=== PATIENT | female | born 1955 | race Caucasian/White ===

== ENCOUNTER 2016-08-09 15:29 | Emergency (ER) | payer MEDICAID ==
[~2016-08-09] VITALS: Ht 152.4 cm; Wt 90.7 kg
[~2016-08-09 15:29] MED LIST: BACL10TA PO; BISA-13 PO; ENAL20TA70 PO; GABA-339 PO; LEVO150T10 PO; LEVO25TA6 PO; MORP15TA68 PO; NORT25CA PO; OMEP20CA5 PO
[2016-08-09 15:40] VITALS: BP 142/72
[2016-08-09] MEDS ORDERED: KETOROLAC TROMETH 60MG/2ML VIAL IM ONE (17:30)
== END 2016-08-09 17:50 | disposition home or self-care (01) ==
LOC: ER 15:33
DX: S53.401A Unspecified sprain of right elbow, initial encounter (principal); E78.5 Hyperlipidemia, unspecified; I10 Essential (primary) hypertension; E11.9 Type 2 diabetes mellitus without complications; E07.9 Disorder of thyroid, unspecified; J45.909 Unspecified asthma, uncomplicated; J44.9 Chronic obstructive pulmonary disease, unspecified; M19.90 Unspecified osteoarthritis, unspecified site; F17.210 Nicotine dependence, cigarettes, uncomplicated; Z79.899 Other long term (current) drug therapy; W19.XXXA Unspecified fall, initial encounter; Y93.89 Activity, other specified; Y99.8 Other external cause status; Y92.89 Other specified places as the place of occurrence of the external cause
CPT/HCPCS: 73080; 96372; 99284; J1885

== ENCOUNTER 2016-10-02 12:06 | Emergency (ER) | payer MEDICAID ==
[~2016-10-02] VITALS: Ht 152.4 cm; Wt 90.7 kg
[2016-10-02] MEDS ORDERED: cloNIDine HCL 0.1 MG TAB ONE (12:16)
[2016-10-02] MEDS ORDERED: cloNIDine HCL 0.1 MG TAB PO ONE (12:30)
[2016-10-02 13:01] LABS: Basophils # (auto) 0.1 uL; Basophils % (auto) 0.5 % (0.0-2.0); Eosinophils # (auto) 0.2 uL; Eosinophils % (auto) 1.2 % (0.0-7.0); Hematocrit 45.3 % (36.0-46.0); Lymphocytes # (auto) 3.3 uL; Lymphocytes % (auto) 23.5 % (10.0-50.0); Mean Corpuscular Hemoglobin 28.3 pg (28.0-32.0); Mean Corpuscular Hgb Conc. 33.2 g/dL (32.0-36.0); Mean Corpuscular Volume 85.4 fL (80.0-100.0); Mean Platelet Volume 8.6 fL (7.4-10.4); Monocytes # (auto) 0.8 uL; Monocytes % (auto) 5.4 % (0.0-12.0); Neutrophils # (auto) 9.7 uL; Neutrophils % (auto) 69.4 % (37.0-80.0); Platelet Count (auto) 332 10^3/uL (140-450); Red Cell Distribution Width 17.3 % (11.6-16.0)
[2016-10-02] MEDS ORDERED: ONDANSETRON HCL 4 MG/2 ML VIAL IV ONE (13:15)
[2016-10-02 13:28] LABS: Albumin 3.5 g/dL (3.4-5.0); Alkaline Phosphatase 205 U/L (45-117); Anion Gap 8 (5-15); Aspartate Aminotransferase 27 U/L (15-37); BUN/Creatinine Ratio 16.4; Bilirubin, Total 0.3 mg/dL (0.2-1.0); Blood Urea Nitrogen 12 mg/dL (7-18); Calcium 8.8 mg/dL (8.5-10.1); Carbon Dioxide 26 mmol/L (21-32); Chloride 103 mmol/L (98-107); GFR African American 105 mL/min; GFR Non-African American 86 mL/min; Glucose 343 mg/dL (74-106); Potassium 3.6 mmol/L (3.5-5.1); Sodium 137 mmol/L (136-145)
[2016-10-02] MEDS ORDERED: MORPHINE SULF INJ 2 MG/ML SYRINGE 1ML IV ONE (13:30)
[2016-10-02 17:13] LABS: Urine Bilirubin Negative (Negative); Urine Blood Negative /uL (Negative); Urine Color Yellow (Yellow); Urine Ketone Negative (Negative); Urine Nitrite Negative (Negative); Urine RBC 1 /hpf (0 - 4); Urine Squamous Epithelial Cell FEW /hpf (<5); Urine Urobilinogen Normal (Negative); Urine pH 5.5 (5.0-8.0)
[2016-10-02 17:21] VITALS: BP 136/69
[2016-10-02 17:33] LABS: Urine Glucose 4+ mg/dL (Normal)
== END 2016-10-02 18:35 | disposition home or self-care (01) ==
LOC: ER 12:06
DX: I10 Essential (primary) hypertension (principal); E11.65 Type 2 diabetes mellitus with hyperglycemia; E11.40 Type 2 diabetes mellitus with diabetic neuropathy, unspecified; J44.9 Chronic obstructive pulmonary disease, unspecified; J45.909 Unspecified asthma, uncomplicated; M19.90 Unspecified osteoarthritis, unspecified site; F17.210 Nicotine dependence, cigarettes, uncomplicated; E78.5 Hyperlipidemia, unspecified; E07.9 Disorder of thyroid, unspecified; Z79.899 Other long term (current) drug therapy
CPT/HCPCS: 36415; 80053; 81001; 82962; 83735; 84484; 85025; 96374; 96375; 99284; J2270; J2405

== ENCOUNTER 2016-12-06 20:46 | Emergency (ER) | payer MEDICAID ==
[~2016-12-06] VITALS: Ht 152.4 cm; Wt 108.9 kg
[~2016-12-06 20:46] MED LIST changes: +MORP15TA PO; -MORP15TA68 PO; -OMEP20CA5 PO; +OMEP20CA74 PO
[2016-12-06] MEDS ORDERED: cloNIDine HCL 0.1 MG TAB PO ONE (21:30)
[2016-12-06 22:11] LABS: Basophils # (auto) 0.1 uL; Basophils % (auto) 0.7 % (0.0-2.0); CONDITION Y; Eosinophils # (auto) 0.3 uL; Eosinophils % (auto) 2.4 % (0.0-7.0); Hematocrit 49.8 % (36.0-46.0); Hemoglobin 16.2 g/dL (12.2-16.2); Lymphocytes # (auto) 3.1 uL; Lymphocytes % (auto) 23.9 % (10.0-50.0); Mean Corpuscular Hemoglobin 28.9 pg (28.0-32.0); Mean Corpuscular Hgb Conc. 32.6 g/dL (32.0-36.0); Mean Corpuscular Volume 88.8 fL (80.0-100.0); Mean Platelet Volume 9.1 fL (7.4-10.4); Monocytes # (auto) 0.7 uL; Monocytes % (auto) 5.3 % (0.0-12.0); Neutrophils # (auto) 8.8 uL; Neutrophils % (auto) 67.7 % (37.0-80.0); Platelet Count (auto) 357 10^3/uL (140-450); Red Cell Distribution Width 15.7 % (11.6-16.0)
[2016-12-06 22:13] LABS: Urine Bilirubin Negative (Negative); Urine Blood TRACE /uL (Negative); Urine Color Yellow (Yellow); Urine Glucose Normal (Normal); Urine Ketone Negative (Negative); Urine Nitrite Negative (Negative); Urine RBC 1 /hpf (0 - 4); Urine Squamous Epithelial Cell FEW /hpf (<5); Urine Urobilinogen Normal (Negative)
[2016-12-06 22:27] LABS: Albumin 3.8 g/dL (3.4-5.0); Anion Gap 10 (5-15); Aspartate Aminotransferase 23 U/L (15-37); BUN/Creatinine Ratio 12.3; Blood Urea Nitrogen 9 mg/dL (7-18); Calcium 8.7 mg/dL (8.5-10.1); Carbon Dioxide 25 mmol/L (21-32); Chloride 108 mmol/L (98-107); GFR African American 105 mL/min; GFR Non-African American 86 mL/min; Glucose 170 mg/dL (74-106); Magnesium 1.9 mg/dL (1.6-2.6); Potassium 3.8 mmol/L (3.5-5.1); Sodium 143 mmol/L (136-145)
[2016-12-06 22:32] LABS: Alkaline Phosphatase 181 U/L (45-117); Bilirubin, Total 0.4 mg/dL (0.2-1.0); Total Protein 8.7 g/dL (6.4-8.2)
[2016-12-06 23:24] LABS: INR 0.97 (0.9-1.15); Partial Thromboplastin Time 26.9 sec (22.64-33.71); Prothrombin Time 10.6 sec (9.37-12.3)
[2016-12-07 02:00] VITALS: BP 129/84
[2016-12-07] MEDS ORDERED: HYDROcodone-ACET 10/325MG TAB PO ONE (02:45)
[2016-12-07] MEDS ORDERED: LORazepam 2MG/ML-1ML VIAL IV ONE (03:00)
== END 2016-12-07 02:59 | disposition home or self-care (01) ==
LOC: ER 20:57
DX: R51 Headache (principal); F41.9 Anxiety disorder, unspecified; I10 Essential (primary) hypertension; E07.89 Other specified disorders of thyroid; M19.90 Unspecified osteoarthritis, unspecified site; F17.210 Nicotine dependence, cigarettes, uncomplicated; Z79.899 Other long term (current) drug therapy; Z90.49 Acquired absence of other specified parts of digestive tract; Z90.710 Acquired absence of both cervix and uterus
CPT/HCPCS: 36415; 70450; 71010; 80053; 80307; 81001; 82962; 83735; 84484; 85025; 85610; 85730; 93005; 96374; 99285; J2060

== ENCOUNTER 2017-02-12 15:22 | Emergency (ER) | payer MEDICAID ==
[~2017-02-12] VITALS: Ht 152.4 cm; Wt 90.7 kg
[2017-02-12 15:42] VITALS: BP 197/99
[2017-02-12] MEDS ORDERED: cloNIDine HCL 0.1 MG TAB PO ONE (16:15)
== END 2017-02-12 17:29 | disposition home or self-care (01) ==
LOC: ER 15:38
DX: S63.92XA Sprain of unspecified part of left wrist and hand, initial encounter (principal); I10 Essential (primary) hypertension; J45.909 Unspecified asthma, uncomplicated; E11.9 Type 2 diabetes mellitus without complications; E78.5 Hyperlipidemia, unspecified; M19.90 Unspecified osteoarthritis, unspecified site; Z90.49 Acquired absence of other specified parts of digestive tract; F17.210 Nicotine dependence, cigarettes, uncomplicated; W01.0XXA Fall on same level from slipping, tripping and stumbling without subsequent striking against object, initial encounter; Y93.89 Activity, other specified; Y99.8 Other external cause status; Y92.89 Other specified places as the place of occurrence of the external cause
CPT/HCPCS: 73130

== ENCOUNTER 2017-05-31 14:48 | Emergency (ER) | payer MEDICAID ==
[~2017-05-31] VITALS: Ht 152.4 cm; Wt 108.9 kg
[~2017-05-31 14:48] MED LIST changes: +MORP-109 PO; -MORP15TA PO
[2017-05-31 15:15] VITALS: BP 139/77
[2017-05-31] MEDS ORDERED: KETOROLAC TROMETH 60MG/2ML VIAL IM ONE (17:00)
== END 2017-05-31 17:29 | disposition left against medical advice (07) ==
LOC: ER 14:48
DX: G89.29 Other chronic pain (principal); M54.9 Dorsalgia, unspecified; J44.9 Chronic obstructive pulmonary disease, unspecified; E11.9 Type 2 diabetes mellitus without complications; E78.5 Hyperlipidemia, unspecified; I10 Essential (primary) hypertension; F17.210 Nicotine dependence, cigarettes, uncomplicated; Z82.3 Family history of stroke; Z83.3 Family history of diabetes mellitus; Z82.49 Family history of ischemic heart disease and other diseases of the circulatory system
CPT/HCPCS: 93005; 96372; 99283; J1885

== ENCOUNTER 2017-08-24 08:25 | Emergency (ER) | payer MEDICAID ==
[~2017-08-24] VITALS: Ht 152.4 cm; Wt 108.9 kg
[2017-08-24] MEDS ORDERED: IPRATROPIUM BROM 0.5 MG/2.5ML INH SOL NEB ONE (09:00)
[2017-08-24] MEDS ORDERED: methylPREDNISolone SOD SUCC 125 MG/2 ML VL IV ONE (09:00)
[2017-08-24] MEDS ORDERED: ALBUTEROL SULF 2.5 MG/0.5ML(0.5%) NEB SOLN NEB ONE (09:00)
[2017-08-24 09:15] LABS: Urine Bacteria NONE SEEN /hpf (None Seen); Urine Blood 1+ /uL (Negative); Urine Mucus FEW (None Seen); Urine WBC <1 /hpf (0 - 5)
[2017-08-24] MEDS ORDERED: HYDROcodone-ACET 5/325MG TAB PO ONE (09:45)
[2017-08-24 10:48] LABS: Basophils # (auto) 0.1 uL; Basophils % (auto) 0.8 % (0.0-2.0); Eosinophils # (auto) 0.1 uL; Hematocrit 45.6 % (36.0-46.0); Hemoglobin 15.3 g/dL (12.2-16.2); Lymphocytes # (auto) 1.6 uL; Lymphocytes % (auto) 23.2 % (10.0-50.0); Mean Corpuscular Hemoglobin 31.2 pg (28.0-32.0); Mean Corpuscular Hgb Conc. 33.6 g/dL (32.0-36.0); Monocytes # (auto) 0.5 uL; Monocytes % (auto) 6.8 % (0.0-12.0); Neutrophils # (auto) 4.7 uL; Neutrophils % (auto) 67.2 % (37.0-80.0); Nucleated Red Blood Cells % 0.1 %; Platelet Count (auto) 260 10^3/uL (140-450); Red Cell Distribution Width 14.2 % (11.8-14.3)
[2017-08-24 11:19] VITALS: BP 135/82
[2017-08-24 11:39] LABS: Alanine Aminotransferase 34 U/L (13-56); Albumin 3.4 g/dL (3.4-5.0); Alkaline Phosphatase 132 U/L (45-117); Anion Gap 10 (5-15); Aspartate Aminotransferase 26 U/L (15-37); BUN/Creatinine Ratio 12.7; Bilirubin, Total 0.4 mg/dL (0.2-1.0); Blood Urea Nitrogen 9 mg/dL (7-18); Calcium 8.5 mg/dL (8.5-10.1); Carbon Dioxide 24 mmol/L (21-32); Chloride 103 mmol/L (98-107); GFR African American 108 mL/min; GFR Non-African American 89 mL/min; Glucose 225 mg/dL (74-106); Magnesium 2.1 mg/dL (1.6-2.6); Potassium 3.9 mmol/L (3.5-5.1); Sodium 137 mmol/L (136-145); Total Protein 7.6 g/dL (6.4-8.2)
== END 2017-08-24 11:20 | disposition home or self-care (01) ==
LOC: ER 08:25
DX: J44.1 Chronic obstructive pulmonary disease with (acute) exacerbation (principal); E11.9 Type 2 diabetes mellitus without complications; I10 Essential (primary) hypertension; E78.00 Pure hypercholesterolemia, unspecified; F17.210 Nicotine dependence, cigarettes, uncomplicated; Z90.710 Acquired absence of both cervix and uterus
CPT/HCPCS: 36415; 71046; 80053; 81001; 83735; 84484; 85025; 93005; 94640; 96374; 99285; J2930; 99291

== ENCOUNTER 2018-01-20 13:43 | Emergency (ER) | payer MEDICAID ==
[~2018-01-20] VITALS: Ht 152.4 cm; Wt 104.3 kg
[2018-01-20 13:53] VITALS: BP 139/73
== END 2018-01-20 18:10 | disposition left against medical advice (07) ==
LOC: ER 13:43
DX: R52 Pain, unspecified (principal); Z76.0 Encounter for issue of repeat prescription; Z53.21 Procedure and treatment not carried out due to patient leaving prior to being seen by health care provider

== ENCOUNTER 2018-01-21 06:01 | Emergency (ER) | payer MEDICAID ==
[~2018-01-21] VITALS: Ht 152.4 cm; Wt 90.7 kg
[2018-01-21 06:27] VITALS: BP 162/100
[2018-01-21] MEDS ORDERED: MORPHINE SULFATE 10 MG/ML INJ 1ML SDV IM ONE (07:45)
[2018-01-21] MEDS ORDERED: PROMETHAZINE HCL 25 MG/ML 1ML IM ONE (07:45)
[2018-01-21] MEDS ORDERED: diphenhdrAMINE HCL 50 MG/1 ML VL IM ONE (07:45)
[2018-01-21] MEDS ORDERED: MORPHINE SULFATE 4 MG/ML SYR/VIAL IM ONE (08:00)
[2018-01-21] MEDS ORDERED: ONDANSETRON HCL 4 MG/2 ML VIAL IM ONE (08:00)
== END 2018-01-21 08:24 | disposition home or self-care (01) ==
LOC: ER 06:04
DX: M54.5 Low back pain (principal); G89.29 Other chronic pain; M19.90 Unspecified osteoarthritis, unspecified site; J44.9 Chronic obstructive pulmonary disease, unspecified; E11.9 Type 2 diabetes mellitus without complications; E78.5 Hyperlipidemia, unspecified; I10 Essential (primary) hypertension; E07.9 Disorder of thyroid, unspecified; F17.210 Nicotine dependence, cigarettes, uncomplicated; Z90.49 Acquired absence of other specified parts of digestive tract; Z79.899 Other long term (current) drug therapy; Z90.710 Acquired absence of both cervix and uterus
CPT/HCPCS: 96372; 99284; J1200; J2270; J2405

== ENCOUNTER 2018-01-30 20:23 | Emergency (ER) | payer MEDICAID ==
[~2018-01-30] VITALS: Ht 152.4 cm; Wt 108.9 kg
[2018-01-30 21:22] LABS: Basophils # (auto) 0.2 uL; Basophils % (auto) 1.3 % (0.0-2.0); Eosinophils # (auto) 0.2 uL; Eosinophils % (auto) 1.3 % (0.0-7.0); Hematocrit 50.5 % (36.0-46.0); Hemoglobin 16.8 g/dL (12.2-16.2); Lymphocytes # (auto) 4.2 uL; Lymphocytes % (auto) 27.7 % (10.0-50.0); Mean Corpuscular Hemoglobin 31.5 pg (28.0-32.0); Mean Corpuscular Hgb Conc. 33.4 g/dL (32.0-36.0); Mean Corpuscular Volume 94.5 fL (80.0-100.0); Monocytes # (auto) 1.1 uL; Monocytes % (auto) 7.4 % (0.0-12.0); Neutrophils # (auto) 9.4 uL; Neutrophils % (auto) 62.3 % (37.0-80.0); Nucleated Red Blood Cells % 0.1 %; Platelet Count (auto) 332 10^3/uL (140-450); Red Blood Cells 5.34 10^6/uL (4.0-5.20); Red Cell Distribution Width 14.9 % (11.8-14.3)
[2018-01-30 22:03] LABS: Urine Bacteria NONE SEEN /hpf (None Seen); Urine Blood TRACE /uL (Negative); Urine Hyaline Cast MANY /lpf (0 - 2); Urine Mucus FEW (None Seen); Urine WBC 11 /hpf (0 - 5)
[2018-01-30 22:47] LABS: Amphetamine Screen, Urine POSITIVE (NEGATIVE); Barbiturate Scree,Urine NEGATIVE (NEGATIVE); Benzodiazephine Screen, Urine NEGATIVE (NEGATIVE); Cannabinoid Screen, Urine NEGATIVE (NEGATIVE); Cocaine Screen, Urine NEGATIVE (NEGATIVE); Opiate Scree,Urine POSITIVE (NEGATIVE); Phencyclidine Screen, Urine NEGATIVE (NEGATIVE)
[2018-01-30 22:48] LABS: Albumin 4.1 g/dL (3.4-5.0); Alkaline Phosphatase 134 U/L (45-117); Anion Gap 9 (5-15); Aspartate Aminotransferase 37 U/L (15-37); BUN/Creatinine Ratio 15.3; Bilirubin, Total 0.6 mg/dL (0.2-1.0); Blood Urea Nitrogen 15 mg/dL (7-18); Calcium 9.3 mg/dL (8.5-10.1); Carbon Dioxide 24 mmol/L (21-32); Chloride 109 mmol/L (98-107); GFR African American 74 mL/min; GFR Non-African American 61 mL/min; Glucose 151 mg/dL (74-106); Magnesium 2.3 mg/dL (1.6-2.6); Sodium 142 mmol/L (136-145); Total Protein 8.6 g/dL (6.4-8.2)
[2018-01-30 22:59] LABS: Alanine Aminotransferase 41 U/L (13-56)
[2018-01-31] MEDS ORDERED: SODIUM CHLORIDE 0.9% 1,000 ML IV ONE (00:15)
[2018-01-31] MEDS ORDERED: LORazepam 2MG/ML-1ML VIAL IV ONE (00:15)
[2018-01-31] MEDS ORDERED: POTASSIUM CHL 20 Meq TABLET PO ONE (00:15)
[2018-01-31] MEDS: POTASSIUM CHL 20MEQ/100ML 100 ML IV SCH ×2 (01:53→02:15)
[2018-01-31 02:45] VITALS: BP 104/65
== END 2018-01-31 05:32 | disposition left against medical advice (07) ==
LOC: ER 20:23
DX: F41.9 Anxiety disorder, unspecified (principal); R41.82 Altered mental status, unspecified; J44.9 Chronic obstructive pulmonary disease, unspecified; E11.9 Type 2 diabetes mellitus without complications; E78.5 Hyperlipidemia, unspecified; I10 Essential (primary) hypertension; M19.90 Unspecified osteoarthritis, unspecified site; F15.10 Other stimulant abuse, uncomplicated; F23 Brief psychotic disorder; E87.6 Hypokalemia; G93.41 Metabolic encephalopathy; N39.0 Urinary tract infection, site not specified; F17.210 Nicotine dependence, cigarettes, uncomplicated; Z90.49 Acquired absence of other specified parts of digestive tract; Z90.710 Acquired absence of both cervix and uterus
CPT/HCPCS: 36415; 71045; 80053; 80307; 80320; 81001; 83735; 84484; 85025; 93005; 94761; 96361; 96365; 96366; 96375; 99285; J2060; J3480; J7030

== ENCOUNTER 2018-04-06 19:15 | Emergency (ER) | payer MEDICAID | END 2018-04-06 19:51 | disposition left against medical advice (07) | LOC: ER 19:15 | DX: F22 Delusional disorders (principal); Z53.21 Procedure and treatment not carried out due to patient leaving prior to being seen by health care provider ==

== ENCOUNTER 2019-10-18 15:15 | Inpatient (IN) | payer MEDICAID ==
[~2019-10-18] VITALS: Ht 154.9 cm; Wt 76.6 kg
[~2019-10-18 15:15] MED LIST changes: +ENAL20TA PO; -ENAL20TA70 PO
[2019-10-18] MEDS ORDERED: methylPREDNISolone SOD SUCC 125 MG/2 ML VL ONE (15:27)
[2019-10-18] MEDS ORDERED: ALBUTEROL SULF 2.5 MG/0.5ML(0.5%) NEB SOLN HHN ONE (15:45)
[2019-10-18] MEDS ORDERED: cefTRIAXone 1GM/50ML D5W 50 ML IV ONE (15:45)
[2019-10-18] MEDS ORDERED: methylPREDNISolone SOD SUCC 125 MG/2 ML VL IV ONE (15:45)
[2019-10-18] MEDS ORDERED: ACETAMINOPHEN/CODEINE#3 (300/30mg) TAB PO ONE (15:45)
[2019-10-18 15:55] LABS: Urine WBC None Seen /hpf (0 - 5)
[2019-10-18 15:58] LABS: Red Blood Cells 4.39 10^6/uL (4.0-5.20)
[2019-10-18 16:01] LABS: Hematocrit 51.7 % (36.0-46.0); Hemoglobin 13.6 g/dL (12.2-16.2); Mean Corpuscular Hemoglobin 31.1 pg (28.0-32.0); Mean Corpuscular Hgb Conc. 26.4 g/dL (32.0-36.0); Mean Corpuscular Volume 117.8 fL (80.0-100.0); Platelet Count (auto) 690 10^3/uL (140-450); Red Cell Distribution Width 15.3 % (11.8-14.3); White Blood Cell 27.1 10^3/uL (4.4-10.8)
[2019-10-18 16:04] LABS: Albumin 2.2 g/dL (3.4-5.0); Anion Gap 19 (5-15); Blood Urea Nitrogen 13 mg/dL (7-18); Calcium 8.2 mg/dL (8.5-10.1); Carbon Dioxide 20 mmol/L (21-32); Chloride 68 mmol/L (98-107); Magnesium 2.6 mg/dL (1.6-2.6); Potassium 3.7 mmol/L (3.5-5.1)
[2019-10-18 16:05] LABS: Lactic Acid w/Reflex 8.8 mmol/L (0.4-2.0)
[2019-10-18 16:12] LABS: Alanine Aminotransferase 15 U/L (13-56); Alkaline Phosphatase 254 U/L (45-117); Aspartate Aminotransferase 15 U/L (15-37); BUN/Creatinine Ratio 6.1; Bilirubin, Total 0.3 mg/dL (0.2-1.0); GFR African American 30 mL/min; GFR Non-African American 25 mL/min; Lactate Dehydrogenase 196 U/L (84-246); Total Protein 7.8 g/dL (6.4-8.2)
[2019-10-18 16:14] LABS: CRP High Sensitivity > 19.0 mg/dL (< 0.3)
[2019-10-18 16:19] LABS: Glucose 1950 mg/dL (74-106); Sodium 107 mmol/L (136-145)
[2019-10-18 16:23] LABS: Urine Bacteria NONE SEEN /hpf (None Seen); Urine Blood Negative /uL (Negative); Urine Specific Gravity 1.025 (1.001-1.035)
[2019-10-18 16:31] LABS: Band Neutrophils % (manual) 4; Basophils % (manual) 0 (0.0-2.0); Blast Cells 0; Eosinophils % (manual) 0 (0-7); Lymphocytes % (manual) 9 (10.0-50.0); Metamyelocytes % 1; Monocytes % (manual) 3 (0-12); Myelocytes % 0; Promyelocytes % 0; Reactive Lymphocytes 0
[2019-10-18] MEDS ORDERED: InsuLIN R (HUMAN) 100 UNITS in SODIUM CHL 0.9% 99 ML IV SCH (16:39)
[2019-10-18] MEDS ORDERED: ZINC SULFATE 220mg CAP or TAB PO ONE (16:45)
[2019-10-18] MEDS ORDERED: SODIUM CHLORIDE 0.9% 1,000 ML IV ONE (16:45)
[2019-10-18] MEDS ORDERED: ASCORBIC ACID 500 MG TAB PO ONE (16:45)
[2019-10-18] MEDS ORDERED: SODIUM CHL 3% 500 ML IV ONE (16:45)
[2019-10-18] MEDS ORDERED: DEXTROSE (50%) 50ML SYRG IV PRN (16:45)
[2019-10-18] MEDS: ACCU-CHEK COMFORT CURVE STRIP VI SCH ×5 (18:06→23:00)
[2019-10-18] MEDS ORDERED: NITROGLYCERIN 0.4 MG SL TAB SL PRN (18:15)
[2019-10-18] MEDS ORDERED: SODIUM CHLORIDE 0.9% 2,000 ML IV ONE (18:15)
[2019-10-18] MEDS ORDERED: MORPHINE SULF INJ 2 MG/ML SYRINGE 1ML IV PRN (18:15)
[2019-10-18] MEDS: SODIUM CHLORIDE 0.9% 1,000 ML IV SCH (22:14)
[2019-10-18] MEDS: LINEZOLID 600MG/300ML 300 ML IV SCH (22:14)
[2019-10-18 22:37] LABS: Calcium 8.2 mg/dL (8.5-10.1)
[2019-10-18 22:43] LABS: Potassium 2.5 mmol/L (3.5-5.1)
[2019-10-18 22:44] LABS: BUN/Creatinine Ratio 10.4
[2019-10-18] MEDS ORDERED: POTASSIUM CHL 20 Meq TABLET PO ONE (23:00)
[2019-10-18] MEDS: MORPHINE SULF INJ 2 MG/ML SYRINGE 1ML IV PRN (23:45)
[2019-10-18] MEDS: ONDANSETRON HCL 4 MG/2 ML VIAL IV PRN (23:45)
[2019-10-19] MEDS: ACCU-CHEK COMFORT CURVE STRIP VI SCH ×9 (01:47→18:24)
[2019-10-19] MEDS: SODIUM CHLORIDE 0.9% 1,000 ML IV SCH ×4 (01:48→21:02)
[2019-10-19] MEDS: PIPERACILLIN-TAZOB 2.25GM 50 ML IV SCH ×4 (01:48→18:24)
[2019-10-19 05:47] LABS: Mean Corpuscular Volume 91.7 fL (80.0-100.0)
[2019-10-19 05:51] LABS: Hematocrit 39.3 % (36.0-46.0); Hemoglobin 13.3 g/dL (12.2-16.2); Mean Corpuscular Hemoglobin 30.9 pg (28.0-32.0); Mean Corpuscular Hgb Conc. 33.7 g/dL (32.0-36.0); Platelet Count (auto) 646 10^3/uL (140-450); Red Blood Cells 4.29 10^6/uL (4.0-5.20); Red Cell Distribution Width 13.6 % (11.8-14.3)
[2019-10-19] MEDS: ONDANSETRON HCL 4 MG/2 ML VIAL IV PRN ×2 (06:33→12:42)
[2019-10-19 06:46] LABS: Albumin 1.9 g/dL (3.4-5.0); BUN/Creatinine Ratio 16.7; Bilirubin, Total 0.3 mg/dL (0.2-1.0); Calcium 8.7 mg/dL (8.5-10.1); Magnesium 2.3 mg/dL (1.6-2.6); Phosphorus 1.9 mg/dL (2.5-4.90); Potassium 3.7 mmol/L (3.5-5.1); Total Protein 7.1 g/dL (6.4-8.2)
[2019-10-19] MEDS ORDERED: LORazepam 2MG/ML-1ML VIAL ONE ×2 (06:55→15:49)
[2019-10-19] MEDS ORDERED: LORazepam 2MG/ML-1ML VIAL IV ONE ×2 (07:00→15:55)
[2019-10-19 07:32] LABS: White Blood Cell 30.1 10^3/uL (4.4-10.8)
[2019-10-19 07:34] LABS: Basophils % (manual) 0 (0.0-2.0); Blast Cells 0; Myelocytes % 0; Promyelocytes % 0; Reactive Lymphocytes 0
[2019-10-19 08:20] LABS: Band Neutrophils % (manual) 7; Eosinophils % (manual) 1 (0-7); Lymphocytes % (manual) 11 (10.0-50.0); Metamyelocytes % 1; Monocytes % (manual) 5 (0-12)
[2019-10-19] MEDS: LINEZOLID 600MG/300ML 300 ML IV SCH ×2 (09:39→21:49)
[2019-10-19] MEDS: ENOXAPARIN SOD 30 MG/0.3 ML SYRINGE SC SCH (09:40)
[2019-10-19] MEDS ORDERED: INSULIN LANTUS (GLARGINE) 1 /0.01ml (100units/ml) SC ONE (10:30)
[2019-10-19] MEDS ORDERED: DEXTROSE (50%) 50ML SYRG IV PRN (10:30)
[2019-10-19] MEDS: InsuLIN REG 1unit/0.01ml Soln (100units/ml) SC SCH ×2 (12:42→18:33)
[2019-10-19] MEDS: MORPHINE SULF INJ 2 MG/ML SYRINGE 1ML IV PRN (12:42)
[2019-10-19] MEDS ORDERED: IOHEXOL 350 MG/ML 100ML IJ ONE (13:38)
[2019-10-19 14:00] VITALS: BP 112/61
[2019-10-19] MEDS: NICOTINE 21MG/24 HR TOPICAL PATCH TD SCH (15:38)
[2019-10-19 16:00] VITALS: BP 137/90
[2019-10-19 16:21] VITALS: BP 137/90
[2019-10-19 18:00] VITALS: BP 157/88
[2019-10-19 20:00] VITALS: BP 143/75
[2019-10-19 22:30] VITALS: BP 67/75
[2019-10-20] VITALS (16 sets, daily range): BP systolic 118–167; BP diastolic 63–93
[2019-10-20] MEDS: MORPHINE SULF INJ 2 MG/ML SYRINGE 1ML IV PRN ×3 (00:03→22:48)
[2019-10-20] MEDS: ACCU-CHEK COMFORT CURVE STRIP VI SCH ×5 (00:04→23:36)
[2019-10-20] MEDS: PIPERACILLIN-TAZOB 2.25GM 50 ML IV SCH ×3 (00:04→12:00)
[2019-10-20] MEDS: InsuLIN REG 1unit/0.01ml Soln (100units/ml) SC SCH ×5 (00:10→23:36)
[2019-10-20] MEDS: SODIUM CHLORIDE 0.9% 1,000 ML IV SCH ×4 (03:35→23:35)
[2019-10-20 05:29] LABS: Basophils # (auto) 0.1 10 ^3/uL (0-0.2); Basophils % (auto) 0.3 % (0.0-2.0); Eosinophils # (auto) 0.1 10 ^3/uL (0-0.8); Eosinophils % (auto) 0.4 % (0.0-7.0); Hematocrit 35.8 % (36.0-46.0); Hemoglobin 11.9 g/dL (12.2-16.2); Lymphocytes # (auto) 2.7 10 ^3/uL (0.4-5.4); Lymphocytes % (auto) 11.2 % (10.0-50.0); Mean Corpuscular Hemoglobin 30.2 pg (28.0-32.0); Mean Corpuscular Hgb Conc. 33.2 g/dL (32.0-36.0); Mean Corpuscular Volume 90.8 fL (80.0-100.0); Monocytes # (auto) 0.9 10 ^3/uL (0-1.3); Monocytes % (auto) 3.9 % (0.0-12.0); Neutrophils # (auto) 20.5 10 ^3/uL (1.6-8.6); Neutrophils % (auto) 84.2 % (37.0-80.0); Nucleated Red Blood Cells % 0.5 %; Platelet Count (auto) 555 10^3/uL (140-450); Red Blood Cells 3.94 10^6/uL (4.0-5.20); Red Cell Distribution Width 13.7 % (11.8-14.3); White Blood Cell 24.4 10^3/uL (4.4-10.8)
[2019-10-20 05:48] LABS: Albumin 1.5 g/dL (3.4-5.0); Calcium 7.9 mg/dL (8.5-10.1); Potassium 3.7 mmol/L (3.5-5.1)
[2019-10-20 05:51] LABS: BUN/Creatinine Ratio 24.2; Bilirubin, Total 0.3 mg/dL (0.2-1.0); Total Protein 6.3 g/dL (6.4-8.2)
[2019-10-20] MEDS: ENOXAPARIN SOD 30 MG/0.3 ML SYRINGE SC SCH (09:53)
[2019-10-20] MEDS: LINEZOLID 600MG/300ML 300 ML IV SCH (09:53)
[2019-10-20] MEDS: NICOTINE 21MG/24 HR TOPICAL PATCH TD SCH (09:58)
[2019-10-20] MEDS: LORazepam 2MG/ML-1ML VIAL IV PRN ×2 (11:54→18:10)
[2019-10-20] MEDS ORDERED: VANCOMYCIN PER PHARMACY 0 MG IV SCH (16:30)
[2019-10-20] MEDS: PIPERACILLIN-TAZOB 3.375GM 100 ML IV SCH ×2 (18:11→23:37)
[2019-10-20] MEDS: VANCOMYCIN 1GM/250ML 250 ML IV SCH (20:53)
[2019-10-21] VITALS (16 sets, daily range): BP systolic 119–156; BP diastolic 73–88
[2019-10-21] MEDS: LORazepam 2MG/ML-1ML VIAL IV PRN ×3 (02:04→19:48)
[2019-10-21 04:10] LABS: Hemoglobin 12.5 g/dL (12.2-16.2)
[2019-10-21 04:13] LABS: Hematocrit 37.1 % (36.0-46.0); Mean Corpuscular Hgb Conc. 33.8 g/dL (32.0-36.0); Platelet Count (auto) 572 10^3/uL (140-450); Red Blood Cells 4.04 10^6/uL (4.0-5.20); Red Cell Distribution Width 13.8 % (11.8-14.3); White Blood Cell 25.4 10^3/uL (4.4-10.8)
[2019-10-21 04:21] LABS: Potassium 3.4 mmol/L (3.5-5.1)
[2019-10-21 04:29] LABS: Albumin 1.4 g/dL (3.4-5.0); BUN/Creatinine Ratio 19.2; Bilirubin, Total 0.5 mg/dL (0.2-1.0); Calcium 7.5 mg/dL (8.5-10.1); Total Protein 6.3 g/dL (6.4-8.2)
[2019-10-21 04:31] LABS: Basophils % (manual) 0 (0.0-2.0); Blast Cells 0; Metamyelocytes % 0; Myelocytes % 0; Promyelocytes % 0; Reactive Lymphocytes 0
[2019-10-21] MEDS: VANCOMYCIN 1GM/250ML 250 ML IV SCH ×3 (05:00→20:34)
[2019-10-21 05:20] LABS: Band Neutrophils % (manual) 7; Eosinophils % (manual) 1 (0-7); Lymphocytes % (manual) 18 (10.0-50.0); Monocytes % (manual) 6 (0-12)
[2019-10-21] MEDS: PIPERACILLIN-TAZOB 3.375GM 100 ML IV SCH ×4 (06:12→23:43)
[2019-10-21] MEDS: InsuLIN REG 1unit/0.01ml Soln (100units/ml) SC SCH ×4 (06:15→23:44)
[2019-10-21] MEDS: SODIUM CHLORIDE 0.9% 1,000 ML IV SCH ×3 (06:15→19:49)
[2019-10-21] MEDS: ACCU-CHEK COMFORT CURVE STRIP VI SCH ×4 (06:16→23:43)
[2019-10-21] MEDS: MORPHINE SULF INJ 2 MG/ML SYRINGE 1ML IV PRN ×4 (08:42→21:50)
[2019-10-21] MEDS: ENOXAPARIN SOD 30 MG/0.3 ML SYRINGE SC SCH (10:54)
[2019-10-21] MEDS: NICOTINE 21MG/24 HR TOPICAL PATCH TD SCH (10:55)
[2019-10-21] MEDS ORDERED: POTASSIUM CHLORIDE 20 MEQ, LIDOCAINE 1% (LOCAL ANESTH.) 2 ML in SODIUM CHL 0.9% 100 ML IV ONE (12:30)
[2019-10-22] VITALS (16 sets, daily range): BP systolic 95–156; BP diastolic 59–95
[2019-10-22] MEDS: MORPHINE SULF INJ 2 MG/ML SYRINGE 1ML IV PRN ×4 (01:53→22:03)
[2019-10-22] MEDS: VANCOMYCIN 1GM/250ML 250 ML IV SCH ×4 (01:53→22:47)
[2019-10-22] MEDS: SODIUM CHLORIDE 0.9% 1,000 ML IV SCH ×4 (03:08→22:03)
[2019-10-22] MEDS: LORazepam 2MG/ML-1ML VIAL IV PRN ×2 (04:35→15:14)
[2019-10-22] MEDS: PIPERACILLIN-TAZOB 3.375GM 100 ML IV SCH ×3 (06:02→18:15)
[2019-10-22] MEDS: ACCU-CHEK COMFORT CURVE STRIP VI SCH ×3 (06:03→18:15)
[2019-10-22] MEDS: InsuLIN REG 1unit/0.01ml Soln (100units/ml) SC SCH ×3 (06:08→18:20)
[2019-10-22] MEDS ORDERED: LORazepam 2MG/ML-1ML VIAL IM ONE (08:30)
[2019-10-22 08:50] LABS: Hematocrit 36.2 % (36.0-46.0); Hemoglobin 11.8 g/dL (12.2-16.2); Mean Corpuscular Hemoglobin 30.2 pg (28.0-32.0); Mean Corpuscular Hgb Conc. 32.6 g/dL (32.0-36.0); Mean Corpuscular Volume 92.7 fL (80.0-100.0); Platelet Count (auto) 449 10^3/uL (140-450); Red Cell Distribution Width 14.2 % (11.8-14.3); White Blood Cell 21.9 10^3/uL (4.4-10.8)
[2019-10-22 08:58] LABS: Basophils % (manual) 0 (0.0-2.0); Blast Cells 0; Eosinophils % (manual) 0 (0-7); Metamyelocytes % 0; Promyelocytes % 0; Reactive Lymphocytes 0
[2019-10-22] MEDS ORDERED: LORazepam 2MG/ML-1ML VIAL IV ONE (09:00)
[2019-10-22 09:13] LABS: Albumin 1.3 g/dL (3.4-5.0); Calcium 7.5 mg/dL (8.5-10.1); Potassium 3.3 mmol/L (3.5-5.1)
[2019-10-22 09:17] LABS: BUN/Creatinine Ratio 12.8; Bilirubin, Total 0.5 mg/dL (0.2-1.0); Total Protein 5.9 g/dL (6.4-8.2)
[2019-10-22 09:22] LABS: Band Neutrophils % (manual) 1; Lymphocytes % (manual) 10 (10.0-50.0); Monocytes % (manual) 5 (0-12); Myelocytes % 1
[2019-10-22] MEDS: ENOXAPARIN SOD 30 MG/0.3 ML SYRINGE SC SCH (10:00)
[2019-10-22] MEDS: NICOTINE 21MG/24 HR TOPICAL PATCH TD SCH (10:16)
[2019-10-22] MEDS ORDERED: POTASSIUM CHLORIDE 40 MEQ, LIDOCAINE 1% (LOCAL ANESTH.) 4 ML in SODIUM CHL 0.9% 100 ML IV ONE (13:15)
[2019-10-23] VITALS (57 sets, daily range): BP systolic 70–202; BP diastolic 37–110
[2019-10-23] MEDS: PIPERACILLIN-TAZOB 3.375GM 100 ML IV SCH ×4 (00:10→18:00)
[2019-10-23] MEDS: ACCU-CHEK COMFORT CURVE STRIP VI SCH ×4 (00:10→17:41)
[2019-10-23] MEDS: InsuLIN REG 1unit/0.01ml Soln (100units/ml) SC SCH ×4 (00:11→18:00)
[2019-10-23] MEDS: MORPHINE SULF INJ 2 MG/ML SYRINGE 1ML IV PRN ×3 (02:04→10:41)
[2019-10-23 03:46] LABS: Basophils # (auto) 0.2 10 ^3/uL (0-0.2); Basophils % (auto) 0.8 % (0.0-2.0); Eosinophils # (auto) 0.1 10 ^3/uL (0-0.8); Eosinophils % (auto) 0.3 % (0.0-7.0); Hematocrit 36.4 % (36.0-46.0); Hemoglobin 11.9 g/dL (12.2-16.2); Lymphocytes # (auto) 2.2 10 ^3/uL (0.4-5.4); Lymphocytes % (auto) 8.7 % (10.0-50.0); Mean Corpuscular Hemoglobin 30.4 pg (28.0-32.0); Mean Corpuscular Hgb Conc. 32.6 g/dL (32.0-36.0); Mean Corpuscular Volume 93.4 fL (80.0-100.0); Monocytes # (auto) 1.3 10 ^3/uL (0-1.3); Neutrophils # (auto) 21.7 10 ^3/uL (1.6-8.6); Neutrophils % (auto) 85.2 % (37.0-80.0); Nucleated Red Blood Cells % 0.7 %; Platelet Count (auto) 407 10^3/uL (140-450); Red Cell Distribution Width 14.3 % (11.8-14.3); White Blood Cell 25.5 10^3/uL (4.4-10.8)
[2019-10-23 04:08] LABS: Albumin 1.3 g/dL (3.4-5.0); Calcium 7.7 mg/dL (8.5-10.1); Potassium 3.6 mmol/L (3.5-5.1)
[2019-10-23 04:11] LABS: Bilirubin, Total 0.6 mg/dL (0.2-1.0)
[2019-10-23] MEDS: LORazepam 2MG/ML-1ML VIAL IV PRN ×2 (04:46→10:41)
[2019-10-23] MEDS: SODIUM CHLORIDE 0.9% 1,000 ML IV SCH ×3 (04:55→18:15)
[2019-10-23] MEDS: VANCOMYCIN 1GM/250ML 250 ML IV SCH ×2 (06:04→21:52)
[2019-10-23] MEDS: ENOXAPARIN SOD 30 MG/0.3 ML SYRINGE SC SCH (10:00)
[2019-10-23] MEDS: NICOTINE 21MG/24 HR TOPICAL PATCH TD SCH (10:41)
[2019-10-23] MEDS ORDERED: MORPHINE SULFATE 100 MG in D5W 5% 90 ML IV SCH ×6 (10:52)
[2019-10-23] MEDS ORDERED: fentaNYL Drip 2500mCg/250mlNS 250 ML IV SCH ×3 (10:52)
[2019-10-23] MEDS ORDERED: ROCURONIUM 10MG/ML 10ML VIAL IV STA (10:52)
[2019-10-23] MEDS ORDERED: PROPOFOL 100 ML IV SCH ×3 (10:52)
[2019-10-23] MEDS ORDERED: LORazepam MDV 2MG/ML 50 MG in SODIUM CHL 0.9% 25 ML IV SCH ×6 (10:52)
[2019-10-23] MEDS ORDERED: ETOMIDATE (2MG/ML) 20ML VIAL IV STA (10:52)
[2019-10-23] MEDS ORDERED: MIDAZOLAM DRIP 50 mg/50mL 50 ML IV SCH ×3 (10:52)
[2019-10-23] MEDS: MIDAZOLAM DRIP 50 mg/50mL 50 ML IV SCH (11:01)
[2019-10-23] MEDS: fentaNYL Drip 2500mCg/250mlNS 250 ML IV SCH (11:15)
[2019-10-23] MEDS: PROPOFOL 100 ML IV SCH ×2 (11:15→17:02)
[2019-10-23] MEDS ORDERED: LIDOCAINE 2% (LOCAL ANESTH.) PF 5ml SDV ONE (11:27)
[2019-10-23] MEDS ORDERED: LIDOCAINE 2%HCL (LOCAL ANESTH.) INJ 10ml MDV ID ONE (11:30)
[2019-10-23] MEDS: NOREPINEPHRINE 8 MG/250ML KIT 250 ML IV SCH (13:00)
[2019-10-23] MEDS: NYSTATIN TOPICAL POWDER 15GM TOP SCH (22:00)
[2019-10-24] VITALS (79 sets, daily range): BP systolic 108–143; BP diastolic 49–77
[2019-10-24] MEDS: ACCU-CHEK COMFORT CURVE STRIP VI SCH ×4 (00:20→18:15)
[2019-10-24] MEDS: InsuLIN REG 1unit/0.01ml Soln (100units/ml) SC SCH ×4 (00:21→18:53)
[2019-10-24] MEDS: SODIUM CHLORIDE 0.9% 1,000 ML IV SCH ×3 (00:55→18:13)
[2019-10-24] MEDS: VANCOMYCIN 1GM/250ML 250 ML IV SCH ×3 (03:56→18:36)
[2019-10-24 04:13] LABS: Hematocrit 31.4 % (36.0-46.0); Mean Corpuscular Hemoglobin 30.2 pg (28.0-32.0); Mean Corpuscular Hgb Conc. 31.9 g/dL (32.0-36.0); Mean Corpuscular Volume 94.6 fL (80.0-100.0); Platelet Count (auto) 413 10^3/uL (140-450); Red Blood Cells 3.32 10^6/uL (4.0-5.20); Red Cell Distribution Width 14.3 % (11.8-14.3); White Blood Cell 20.9 10^3/uL (4.4-10.8)
[2019-10-24 04:35] LABS: Potassium 3.3 mmol/L (3.5-5.1)
[2019-10-24 04:51] LABS: Albumin 1.1 g/dL (3.4-5.0); BUN/Creatinine Ratio 9.1; Bilirubin, Total 0.9 mg/dL (0.2-1.0); Calcium 7.2 mg/dL (8.5-10.1); Total Protein 5.4 g/dL (6.4-8.2)
[2019-10-24 05:05] LABS: Basophils % (manual) 0 (0.0-2.0); Blast Cells 0; Eosinophils % (manual) 0 (0-7); Myelocytes % 0; Promyelocytes % 0; Reactive Lymphocytes 0
[2019-10-24 05:34] LABS: Band Neutrophils % (manual) 22; Lymphocytes % (manual) 16 (10.0-50.0); Metamyelocytes % 1; Monocytes % (manual) 2 (0-12)
[2019-10-24] MEDS: PIPERACILLIN-TAZOB 3.375GM 100 ML IV SCH ×5 (06:23→18:30)
[2019-10-24] MEDS: fentaNYL Drip 2500mCg/250mlNS 250 ML IV SCH (07:57)
[2019-10-24] MEDS: NOREPINEPHRINE 8 MG/250ML KIT 250 ML IV SCH (07:59)
[2019-10-24] MEDS ORDERED: POTASSIUM CHLORIDE 40 MEQ, LIDOCAINE 1% (LOCAL ANESTH.) 4 ML in SODIUM CHL 0.9% 100 ML IV ONE (09:00)
[2019-10-24] MEDS ORDERED: TPN PER PHARMACY 0 ML IV SCH (09:30)
[2019-10-24] MEDS: PROPOFOL 100 ML IV SCH ×3 (09:38→17:45)
[2019-10-24] MEDS: NYSTATIN TOPICAL POWDER 15GM TOP SCH ×2 (09:44→21:13)
[2019-10-24] MEDS: NICOTINE 21MG/24 HR TOPICAL PATCH TD SCH (09:44)
[2019-10-24] MEDS: ENOXAPARIN SOD 30 MG/0.3 ML SYRINGE SC SCH (09:44)
[2019-10-24 10:13] LABS: Phosphorus 2.1 mg/dL (2.5-4.90)
[2019-10-24] MEDS: MIDAZOLAM DRIP 50 mg/50mL 50 ML IV SCH (11:01)
[2019-10-24 13:54] LABS: INR 1.04 (0.9-1.15)
[2019-10-24] MEDS ORDERED: SODIUM PHOSPHATES 20 MEQ in SODIUM CHL 0.9% 100 ML IV ONE (14:00)
[2019-10-24] MEDS ORDERED: LIDOCAINE 1% (LOCAL ANESTH.) PF 5ml SDV ID ONE ×2 (15:00)
[2019-10-24] MEDS ORDERED: LIDOCAINE 2%HCL (LOCAL ANESTH.) INJ 20ML MDV ONE (15:18)
[2019-10-24] MEDS ORDERED: NOREPINEPHRINE 8 MG/250ML KIT 0 ML IV ONE (15:20)
[2019-10-24 15:40] LABS: Urine Bacteria NONE SEEN /hpf (None Seen); Urine Blood 1+ /uL (Negative); Urine Budding Yeast LOADED /hpf (None Seen); Urine Specific Gravity 1.011 (1.001-1.035); Urine WBC Clumps PRESENT /hpf (None Seen)
[2019-10-24 15:41] LABS: Urine WBC 37 /hpf (0 - 5)
[2019-10-24] MEDS ORDERED: TPN PER PHARMACY IV NR ×7 (20:00)
[2019-10-24] MEDS: SODIUM CHLOR 0.9% PF (SALINE LOCK) 10ML VIAL/SYR IV SCH (21:13)
[2019-10-24] MEDS ORDERED: SODIUM CHLOR 0.9% PF (SALINE LOCK) 10ML VIAL/SYR IV SCH (22:00)
[2019-10-25] VITALS (104 sets, daily range): BP systolic 88–139; BP diastolic 43–66
[2019-10-25] MEDS: InsuLIN REG 1unit/0.01ml Soln (100units/ml) SC SCH ×5 (00:43→23:35)
[2019-10-25] MEDS: ACCU-CHEK COMFORT CURVE STRIP VI SCH ×5 (00:44→23:36)
[2019-10-25 04:47] LABS: Basophils # (auto) 0.1 10 ^3/uL (0-0.2); Basophils % (auto) 0.3 % (0.0-2.0); Eosinophils # (auto) 0.2 10 ^3/uL (0-0.8); Eosinophils % (auto) 1.2 % (0.0-7.0); Hematocrit 30.6 % (36.0-46.0); Hemoglobin 9.8 g/dL (12.2-16.2); Lymphocytes # (auto) 2.4 10 ^3/uL (0.4-5.4); Lymphocytes % (auto) 12.2 % (10.0-50.0); Mean Corpuscular Hemoglobin 30.4 pg (28.0-32.0); Mean Corpuscular Hgb Conc. 32.1 g/dL (32.0-36.0); Mean Corpuscular Volume 94.8 fL (80.0-100.0); Monocytes # (auto) 0.6 10 ^3/uL (0-1.3); Neutrophils # (auto) 16.6 10 ^3/uL (1.6-8.6); Neutrophils % (auto) 83.3 % (37.0-80.0); Nucleated Red Blood Cells % 0.6 %; Platelet Count (auto) 409 10^3/uL (140-450); Red Blood Cells 3.22 10^6/uL (4.0-5.20); Red Cell Distribution Width 14.7 % (11.8-14.3); White Blood Cell 19.9 10^3/uL (4.4-10.8)
[2019-10-25] MEDS: fentaNYL Drip 2500mCg/250mlNS 250 ML IV SCH ×2 (05:00→22:01)
[2019-10-25 05:13] LABS: Potassium 3.4 mmol/L (3.5-5.1)
[2019-10-25 05:22] LABS: BUN/Creatinine Ratio 6.5; Bilirubin, Total 0.3 mg/dL (0.2-1.0); Calcium 7.2 mg/dL (8.5-10.1); Magnesium 2.2 mg/dL (1.6-2.6); Phosphorus 3.1 mg/dL (2.5-4.90); Total Protein 5.3 g/dL (6.4-8.2)
[2019-10-25] MEDS: PIPERACILLIN-TAZOB 3.375GM 100 ML IV SCH ×4 (06:19→23:36)
[2019-10-25] MEDS: PROPOFOL 100 ML IV SCH ×4 (09:08→20:53)
[2019-10-25] MEDS ORDERED: POTASSIUM CHLORIDE 20 MEQ, LIDOCAINE 1% (LOCAL ANESTH.) 2 ML in SODIUM CHL 0.9% 100 ML IV ONE (10:00)
[2019-10-25] MEDS: NICOTINE 21MG/24 HR TOPICAL PATCH TD SCH (10:18)
[2019-10-25] MEDS: ENOXAPARIN SOD 30 MG/0.3 ML SYRINGE SC SCH (10:18)
[2019-10-25] MEDS: LINEZOLID 600MG/300ML 300 ML IV SCH ×2 (10:18→22:18)
[2019-10-25] MEDS: NYSTATIN TOPICAL POWDER 15GM TOP SCH ×2 (10:19→22:18)
[2019-10-25] MEDS: SODIUM CHLOR 0.9% PF (SALINE LOCK) 10ML VIAL/SYR IV SCH ×2 (10:20→22:18)
[2019-10-25] MEDS: MIDAZOLAM DRIP 50 mg/50mL 50 ML IV SCH (11:01)
[2019-10-25] MEDS: NOREPINEPHRINE 8 MG/250ML KIT 250 ML IV SCH (12:53)
[2019-10-25] MEDS: SODIUM CHLORIDE 0.9% 1,000 ML IV SCH ×2 (14:29→20:00)
[2019-10-25] MEDS ORDERED: TPN PER PHARMACY IV NR ×9 (20:00)
[2019-10-26] VITALS (102 sets, daily range): BP systolic 85–118; BP diastolic 42–56
[2019-10-26] MEDS: PROPOFOL 100 ML IV SCH ×3 (02:51→22:52)
[2019-10-26 04:46] LABS: Basophils # (auto) 0.1 10 ^3/uL (0-0.2); Basophils % (auto) 0.5 % (0.0-2.0); Eosinophils # (auto) 0.2 10 ^3/uL (0-0.8); Eosinophils % (auto) 1.1 % (0.0-7.0); Hematocrit 29.5 % (36.0-46.0); Hemoglobin 9.3 g/dL (12.2-16.2); Lymphocytes # (auto) 2.4 10 ^3/uL (0.4-5.4); Mean Corpuscular Hemoglobin 29.8 pg (28.0-32.0); Mean Corpuscular Hgb Conc. 31.6 g/dL (32.0-36.0); Mean Corpuscular Volume 94.3 fL (80.0-100.0); Monocytes # (auto) 0.6 10 ^3/uL (0-1.3); Monocytes % (auto) 3.1 % (0.0-12.0); Neutrophils # (auto) 16.5 10 ^3/uL (1.6-8.6); Neutrophils % (auto) 83.3 % (37.0-80.0); Nucleated Red Blood Cells % 0.3 %; Platelet Count (auto) 333 10^3/uL (140-450); Red Blood Cells 3.13 10^6/uL (4.0-5.20); Red Cell Distribution Width 14.5 % (11.8-14.3); White Blood Cell 19.8 10^3/uL (4.4-10.8)
[2019-10-26 05:03] LABS: Potassium 3.5 mmol/L (3.5-5.1)
[2019-10-26 05:10] LABS: BUN/Creatinine Ratio 9.3; Bilirubin, Total 0.3 mg/dL (0.2-1.0); Calcium 7.2 mg/dL (8.5-10.1); Magnesium 1.9 mg/dL (1.6-2.6); Phosphorus 3.4 mg/dL (2.5-4.90); Total Protein 5.1 g/dL (6.4-8.2)
[2019-10-26 05:30] LABS: Albumin 0.9 g/dL (3.4-5.0)
[2019-10-26] MEDS: PIPERACILLIN-TAZOB 3.375GM 100 ML IV SCH (05:48)
[2019-10-26] MEDS: ACCU-CHEK COMFORT CURVE STRIP VI SCH ×3 (05:49→18:14)
[2019-10-26] MEDS: InsuLIN REG 1unit/0.01ml Soln (100units/ml) SC SCH ×3 (05:49→18:18)
[2019-10-26] MEDS: NICOTINE 21MG/24 HR TOPICAL PATCH TD SCH (10:12)
[2019-10-26] MEDS: LINEZOLID 600MG/300ML 300 ML IV SCH ×2 (10:13→21:49)
[2019-10-26] MEDS: SODIUM CHLOR 0.9% PF (SALINE LOCK) 10ML VIAL/SYR IV SCH ×2 (10:13→21:49)
[2019-10-26] MEDS: ENOXAPARIN SOD 30 MG/0.3 ML SYRINGE SC SCH (10:13)
[2019-10-26] MEDS: NYSTATIN TOPICAL POWDER 15GM TOP SCH ×2 (10:13→21:49)
[2019-10-26] MEDS: ALBUMIN 25% 100 ML IV SCH ×2 (10:14→11:27)
[2019-10-26] MEDS: fentaNYL Drip 2500mCg/250mlNS 250 ML IV SCH (10:30)
[2019-10-26] MEDS: MIDAZOLAM DRIP 50 mg/50mL 50 ML IV SCH (11:01)
[2019-10-26] MEDS ORDERED: ALTEPLASE IV ONE (11:15)
[2019-10-26] MEDS ORDERED: STERILE WATER IV ONE (11:15)
[2019-10-26] MEDS ORDERED: CATHFLO IV ONE (11:15)
[2019-10-26] MEDS: NOREPINEPHRINE 8 MG/250ML KIT 250 ML IV SCH (12:53)
[2019-10-26] MEDS: MEROPENEM 1GM IVPB 100 ML IV SCH ×2 (14:00→21:49)
[2019-10-26] MEDS ORDERED: CATHFLO ACTIVASE (ALTEPLASE) 2 MG VIAL IV ONE (19:00)
[2019-10-26] MEDS: SODIUM CHLORIDE 0.9% 1,000 ML IV SCH (20:00)
[2019-10-26] MEDS ORDERED: TPN PER PHARMACY IV NR ×9 (20:00)
[2019-10-26] MEDS: INSULIN LANTUS (GLARGINE) 1 /0.01ml (100units/ml) SC SCH (21:18)
[2019-10-27] VITALS (100 sets, daily range): BP systolic 83–136; BP diastolic 40–68
[2019-10-27] MEDS: InsuLIN REG 1unit/0.01ml Soln (100units/ml) SC SCH ×4 (00:09→18:19)
[2019-10-27] MEDS: ACCU-CHEK COMFORT CURVE STRIP VI SCH ×4 (00:09→18:04)
[2019-10-27] MEDS: fentaNYL Drip 2500mCg/250mlNS 250 ML IV SCH (00:38)
[2019-10-27] MEDS: PROPOFOL 100 ML IV SCH ×4 (04:23→22:45)
[2019-10-27 05:02] LABS: Basophils # (auto) 0 10 ^3/uL (0-0.2); Basophils % (auto) 0.2 % (0.0-2.0); Eosinophils # (auto) 0.1 10 ^3/uL (0-0.8); Eosinophils % (auto) 0.4 % (0.0-7.0); Hemoglobin 8.9 g/dL (12.2-16.2); Lymphocytes % (auto) 9.2 % (10.0-50.0); Mean Corpuscular Hgb Conc. 31.8 g/dL (32.0-36.0); Mean Corpuscular Volume 94.4 fL (80.0-100.0); Monocytes # (auto) 0.8 10 ^3/uL (0-1.3); Monocytes % (auto) 3.5 % (0.0-12.0); Neutrophils # (auto) 18.9 10 ^3/uL (1.6-8.6); Neutrophils % (auto) 86.7 % (37.0-80.0); Nucleated Red Blood Cells % 0.2 %; Platelet Count (auto) 373 10^3/uL (140-450); Red Blood Cells 2.97 10^6/uL (4.0-5.20); Red Cell Distribution Width 14.7 % (11.8-14.3); White Blood Cell 21.9 10^3/uL (4.4-10.8)
[2019-10-27 05:25] LABS: Potassium 3.9 mmol/L (3.5-5.1)
[2019-10-27 05:41] LABS: Albumin 1.3 g/dL (3.4-5.0); BUN/Creatinine Ratio 12.4; Calcium 7.2 mg/dL (8.5-10.1); Magnesium 1.9 mg/dL (1.6-2.6); Total Protein 5.4 g/dL (6.4-8.2)
[2019-10-27 05:43] LABS: Bilirubin, Total 0.4 mg/dL (0.2-1.0); Phosphorus 3.1 mg/dL (2.5-4.90)
[2019-10-27] MEDS: MEROPENEM 1GM IVPB 100 ML IV SCH ×3 (06:23→22:29)
[2019-10-27] MEDS ORDERED: SODIUM CHLORIDE LOCK 0 ML ONE (09:00)
[2019-10-27] MEDS ORDERED: EPINEPHrine HCL 1 MG/1 ML AMP ONE (09:00)
[2019-10-27] MEDS ORDERED: LIDOCAINE 2%HCL (LOCAL ANESTH.) INJ 20ML MDV ONE (09:00)
[2019-10-27] MEDS ORDERED: LIDOCAINE HCL 2% TOP JELLY 5ML TOP ONE (09:01)
[2019-10-27] MEDS ORDERED: CATHFLO ACTIVASE (ALTEPLASE) 2 MG VIAL IV ONE ×2 (09:15→18:30)
[2019-10-27] MEDS ORDERED: ALTEPLASE 2MG CATHFLO 10 MG in STERILE WATER 30 ML IV ONE ×2 (09:15→18:30)
[2019-10-27] MEDS: ENOXAPARIN SOD 30 MG/0.3 ML SYRINGE SC SCH (10:00)
[2019-10-27] MEDS: NYSTATIN TOPICAL POWDER 15GM TOP SCH ×2 (10:20→22:00)
[2019-10-27] MEDS: SODIUM CHLOR 0.9% PF (SALINE LOCK) 10ML VIAL/SYR IV SCH ×2 (10:26→22:00)
[2019-10-27] MEDS: FLUCONAZOLE 200MG/100ML 100 ML IV SCH (10:26)
[2019-10-27] MEDS: LINEZOLID 600MG/300ML 300 ML IV SCH ×2 (10:26→22:00)
[2019-10-27] MEDS: NICOTINE 21MG/24 HR TOPICAL PATCH TD SCH (10:26)
[2019-10-27] MEDS: MIDAZOLAM DRIP 50 mg/50mL 50 ML IV SCH (11:01)
[2019-10-27] MEDS: NOREPINEPHRINE 8 MG/250ML KIT 250 ML IV SCH (12:53)
[2019-10-27] MEDS: SODIUM CHLORIDE 0.9% 1,000 ML IV SCH (19:32)
[2019-10-27] MEDS ORDERED: TPN PER PHARMACY IV NR ×9 (20:00)
[2019-10-27] MEDS: INSULIN LANTUS (GLARGINE) 1 /0.01ml (100units/ml) SC SCH (22:00)
[2019-10-28] VITALS (108 sets, daily range): BP systolic 84–136; BP diastolic 40–71
[2019-10-28] MEDS: ACCU-CHEK COMFORT CURVE STRIP VI SCH ×4 (00:03→18:16)
[2019-10-28] MEDS: InsuLIN REG 1unit/0.01ml Soln (100units/ml) SC SCH ×4 (00:04→18:33)
[2019-10-28 04:11] LABS: Basophils # (auto) 0.1 10 ^3/uL (0-0.2); Basophils % (auto) 0.3 % (0.0-2.0); Eosinophils # (auto) 0.1 10 ^3/uL (0-0.8); Eosinophils % (auto) 0.4 % (0.0-7.0); Hemoglobin 9.4 g/dL (12.2-16.2); Lymphocytes # (auto) 1.8 10 ^3/uL (0.4-5.4); Monocytes # (auto) 0.7 10 ^3/uL (0-1.3)
[2019-10-28 04:14] LABS: Mean Corpuscular Hemoglobin 30.3 pg (28.0-32.0); Mean Corpuscular Hgb Conc. 32.5 g/dL (32.0-36.0); Mean Corpuscular Volume 93.4 fL (80.0-100.0); Monocytes % (auto) 3.4 % (0.0-12.0); Neutrophils # (auto) 17.3 10 ^3/uL (1.6-8.6); Neutrophils % (auto) 86.9 % (37.0-80.0); Nucleated Red Blood Cells % 0.1 %; Platelet Count (auto) 457 10^3/uL (140-450); Red Cell Distribution Width 14.5 % (11.8-14.3); White Blood Cell 19.9 10^3/uL (4.4-10.8)
[2019-10-28 04:36] LABS: Albumin 1.1 g/dL (3.4-5.0); BUN/Creatinine Ratio 18.3; Potassium 3.9 mmol/L (3.5-5.1)
[2019-10-28 04:38] LABS: Bilirubin, Total 0.2 mg/dL (0.2-1.0); Phosphorus 3.4 mg/dL (2.5-4.90); Total Protein 5.5 g/dL (6.4-8.2)
[2019-10-28] MEDS: MEROPENEM 1GM IVPB 100 ML IV SCH ×2 (06:00→14:14)
[2019-10-28] MEDS: NICOTINE 21MG/24 HR TOPICAL PATCH TD SCH (10:07)
[2019-10-28] MEDS: LINEZOLID 600MG/300ML 300 ML IV SCH ×2 (10:08→22:20)
[2019-10-28] MEDS: ENOXAPARIN SOD 30 MG/0.3 ML SYRINGE SC SCH (10:08)
[2019-10-28] MEDS: SODIUM CHLOR 0.9% PF (SALINE LOCK) 10ML VIAL/SYR IV SCH ×2 (10:09→22:20)
[2019-10-28] MEDS: NYSTATIN TOPICAL POWDER 15GM TOP SCH ×2 (10:10→22:20)
[2019-10-28] MEDS: FLUCONAZOLE 200MG/100ML 100 ML IV SCH (10:40)
[2019-10-28] MEDS ORDERED: CATHFLO ACTIVASE (ALTEPLASE) 2 MG VIAL IV ONE (10:45)
[2019-10-28] MEDS: PROPOFOL 100 ML IV SCH ×3 (10:53→22:26)
[2019-10-28] MEDS: fentaNYL Drip 2500mCg/250mlNS 250 ML IV SCH ×2 (11:01→20:15)
[2019-10-28] MEDS: MIDAZOLAM DRIP 50 mg/50mL 50 ML IV SCH (11:01)
[2019-10-28] MEDS ORDERED: ALTEPLASE 2MG CATHFLO 10 MG in STERILE WATER 30 ML IV ONE (11:15)
[2019-10-28] MEDS: NOREPINEPHRINE 8 MG/250ML KIT 250 ML IV SCH (12:53)
[2019-10-28] MEDS ORDERED: PROPOFOL 100 ML IV ONE (13:50)
[2019-10-28] MEDS ORDERED: Glucerna 1.2 Cal 1Liter BOTTLE GT SCH (16:30)
[2019-10-28] MEDS ORDERED: TPN PER PHARMACY IV NR ×9 (20:00)
[2019-10-28] MEDS: SODIUM CHLORIDE 0.9% 1,000 ML IV SCH (20:16)
[2019-10-28] MEDS: INSULIN LANTUS (GLARGINE) 1 /0.01ml (100units/ml) SC SCH (22:00)
[2019-10-29] VITALS (103 sets, daily range): BP systolic 76–146; BP diastolic 35–76
[2019-10-29] MEDS: InsuLIN REG 1unit/0.01ml Soln (100units/ml) SC SCH ×4 (00:42→18:00)
[2019-10-29] MEDS: MEROPENEM 1GM IVPB 100 ML IV SCH ×2 (02:08→14:07)
[2019-10-29] MEDS: PROPOFOL 100 ML IV SCH ×4 (02:52→22:23)
[2019-10-29 04:31] LABS: Eosinophils # (auto) 0.1 10 ^3/uL (0-0.8); Lymphocytes # (auto) 1.8 10 ^3/uL (0.4-5.4); Monocytes # (auto) 0.6 10 ^3/uL (0-1.3); Monocytes % (auto) 3.7 % (0.0-12.0); Red Cell Distribution Width 14.8 % (11.8-14.3)
[2019-10-29 04:32] LABS: Basophils # (auto) 0.1 10 ^3/uL (0-0.2); Basophils % (auto) 0.4 % (0.0-2.0); Eosinophils % (auto) 0.4 % (0.0-7.0); Hematocrit 25.2 % (36.0-46.0); Hemoglobin 8.2 g/dL (12.2-16.2); Mean Corpuscular Hemoglobin 30.7 pg (28.0-32.0); Mean Corpuscular Hgb Conc. 32.7 g/dL (32.0-36.0); Mean Corpuscular Volume 94.1 fL (80.0-100.0); Neutrophils # (auto) 12.8 10 ^3/uL (1.6-8.6); Neutrophils % (auto) 83.5 % (37.0-80.0); Nucleated Red Blood Cells % 0.3 %; Platelet Count (auto) 421 10^3/uL (140-450); Red Blood Cells 2.68 10^6/uL (4.0-5.20); White Blood Cell 15.3 10^3/uL (4.4-10.8)
[2019-10-29 04:40] LABS: BUN/Creatinine Ratio 21.5; Calcium 7.1 mg/dL (8.5-10.1)
[2019-10-29 04:43] LABS: Bilirubin, Total 0.2 mg/dL (0.2-1.0); Phosphorus 3.9 mg/dL (2.5-4.90); Total Protein 5.4 g/dL (6.4-8.2)
[2019-10-29] MEDS: ACCU-CHEK COMFORT CURVE STRIP VI SCH ×5 (06:02→23:58)
[2019-10-29] MEDS ORDERED: ALTEPLASE 2MG CATHFLO 10 MG in STERILE WATER 30 ML IV ONE (09:30)
[2019-10-29] MEDS ORDERED: CATHFLO ACTIVASE (ALTEPLASE) 2 MG VIAL IV ONE (09:30)
[2019-10-29] MEDS: FLUCONAZOLE 200MG/100ML 100 ML IV SCH (09:33)
[2019-10-29] MEDS: ENOXAPARIN SOD 30 MG/0.3 ML SYRINGE SC SCH (09:33)
[2019-10-29] MEDS: NICOTINE 21MG/24 HR TOPICAL PATCH TD SCH (09:33)
[2019-10-29] MEDS: SODIUM CHLOR 0.9% PF (SALINE LOCK) 10ML VIAL/SYR IV SCH ×2 (09:43→21:49)
[2019-10-29] MEDS: NYSTATIN TOPICAL POWDER 15GM TOP SCH ×2 (09:43→21:49)
[2019-10-29] MEDS: fentaNYL Drip 2500mCg/250mlNS 250 ML IV SCH ×2 (10:51→22:23)
[2019-10-29] MEDS: LINEZOLID 600MG/300ML 300 ML IV SCH ×2 (10:52→21:49)
[2019-10-29] MEDS: MIDAZOLAM DRIP 50 mg/50mL 50 ML IV SCH (11:01)
[2019-10-29] MEDS: NOREPINEPHRINE 8 MG/250ML KIT 250 ML IV SCH (11:07)
[2019-10-29] MEDS: SODIUM CHLORIDE 0.9% 1,000 ML IV SCH (13:28)
[2019-10-29 18:42] LABS: Pre Albumin 4.8 mg/dL (20.0-40.0)
[2019-10-29] MEDS ORDERED: TPN PER PHARMACY IV NR ×9 (20:00)
[2019-10-29] MEDS: INSULIN LANTUS (GLARGINE) 1 /0.01ml (100units/ml) SC SCH (21:55)
[2019-10-30] VITALS (99 sets, daily range): BP systolic 77–163; BP diastolic 41–129
[2019-10-30] MEDS: MEROPENEM 1GM IVPB 100 ML IV SCH ×2 (02:39→14:00)
[2019-10-30] MEDS: PROPOFOL 100 ML IV SCH ×4 (02:40→18:48)
[2019-10-30 04:33] LABS: Eosinophils # (auto) 0.1 10 ^3/uL (0-0.8); Hemoglobin 8.5 g/dL (12.2-16.2); Lymphocytes # (auto) 1.8 10 ^3/uL (0.4-5.4); Mean Corpuscular Volume 94.1 fL (80.0-100.0); Monocytes # (auto) 0.6 10 ^3/uL (0-1.3); Nucleated Red Blood Cells % 0.2 %
[2019-10-30 04:36] LABS: Basophils # (auto) 0.3 10 ^3/uL (0-0.2); Basophils % (auto) 2.3 % (0.0-2.0); Eosinophils % (auto) 0.4 % (0.0-7.0); Hematocrit 24.6 % (36.0-46.0); Lymphocytes % (auto) 12.9 % (10.0-50.0); Mean Corpuscular Hemoglobin 32.7 pg (28.0-32.0); Mean Corpuscular Hgb Conc. 34.8 g/dL (32.0-36.0); Monocytes % (auto) 4.4 % (0.0-12.0); Platelet Count (auto) 471 10^3/uL (140-450); Red Blood Cells 2.62 10^6/uL (4.0-5.20); Red Cell Distribution Width 14.6 % (11.8-14.3); White Blood Cell 13.8 10^3/uL (4.4-10.8)
[2019-10-30] MEDS: ACCU-CHEK COMFORT CURVE STRIP VI SCH ×4 (05:45→23:49)
[2019-10-30] MEDS: InsuLIN REG 1unit/0.01ml Soln (100units/ml) SC SCH ×5 (05:45→23:57)
[2019-10-30 06:33] LABS: Potassium 4.4 mmol/L (3.5-5.1)
[2019-10-30 06:44] LABS: BUN/Creatinine Ratio 20.6; Bilirubin, Total 0.3 mg/dL (0.2-1.0); Calcium 7.4 mg/dL (8.5-10.1); Total Protein 5.9 g/dL (6.4-8.2)
[2019-10-30] MEDS ORDERED: SODIUM CHLORIDE LOCK 20 ML ONE (09:44)
[2019-10-30] MEDS ORDERED: LIDOCAINE 2%HCL (LOCAL ANESTH.) INJ 20ML MDV ONE (09:45)
[2019-10-30] MEDS ORDERED: LIDOCAINE VISCOUS 2% 15ML UD ONE (09:46)
[2019-10-30] MEDS ORDERED: EPINEPHrine HCL 1 MG/1 ML AMP ONE (09:46)
[2019-10-30] MEDS ORDERED: GLYCOPYRROLATE 0.2 MG/ML 1ML VIAL ONE (09:46)
[2019-10-30] MEDS ORDERED: LIDOCAINE HCL 2% TOP JELLY 5ML TOP ONE (09:47)
[2019-10-30] MEDS: FLUCONAZOLE 200MG/100ML 100 ML IV SCH (09:59)
[2019-10-30] MEDS ORDERED: ACETYLCYSTEINE 20%(200MG/ML) SOL 4ML NEB ONE (10:00)
[2019-10-30] MEDS: ENOXAPARIN SOD 30 MG/0.3 ML SYRINGE SC SCH (10:29)
[2019-10-30] MEDS: NYSTATIN TOPICAL POWDER 15GM TOP SCH ×2 (10:30→21:52)
[2019-10-30] MEDS: SODIUM CHLOR 0.9% PF (SALINE LOCK) 10ML VIAL/SYR IV SCH ×2 (10:30→21:52)
[2019-10-30] MEDS: NICOTINE 21MG/24 HR TOPICAL PATCH TD SCH (10:30)
[2019-10-30] MEDS: MIDAZOLAM DRIP 50 mg/50mL 50 ML IV SCH (10:30)
[2019-10-30] MEDS: LINEZOLID 600MG/300ML 300 ML IV SCH ×2 (11:08→21:52)
[2019-10-30] MEDS ORDERED: ROCURONIUM 10MG/ML 10ML VIAL IV ONE (13:11)
[2019-10-30] MEDS: ALBUTEROL SULF 2.5 MG/0.5ML(0.5%) NEB SOLN NEB PRN (16:06)
[2019-10-30] MEDS: IPRATROPIUM BROM 0.5 MG/2.5ML INH SOL NEB PRN (16:06)
[2019-10-30] MEDS: SODIUM CHLORIDE 0.9% 1,000 ML IV SCH (17:43)
[2019-10-30] MEDS: NOREPINEPHRINE 8 MG/250ML KIT 250 ML IV SCH (17:43)
[2019-10-30] MEDS: FUROSEMIDE 40 MG/4 ML VIAL IV SCH (18:13)
[2019-10-30] MEDS: INSULIN LANTUS (GLARGINE) 1 /0.01ml (100units/ml) SC SCH (21:52)
[2019-10-30] MEDS: fentaNYL Drip 2500mCg/250mlNS 250 ML IV SCH (22:30)
[2019-10-31] VITALS (101 sets, daily range): BP systolic 61–147; BP diastolic 30–86
[2019-10-31] MEDS: IPRATROPIUM BROM 0.5 MG/2.5ML INH SOL NEB PRN (02:06)
[2019-10-31] MEDS: ALBUTEROL SULF 2.5 MG/0.5ML(0.5%) NEB SOLN NEB PRN (02:06)
[2019-10-31] MEDS: MEROPENEM 1GM IVPB 100 ML IV SCH ×2 (02:06→13:59)
[2019-10-31] MEDS: PROPOFOL 100 ML IV SCH ×3 (04:09→23:56)
[2019-10-31 05:10] LABS: Potassium 4.5 mmol/L (3.5-5.1)
[2019-10-31 05:14] LABS: Basophils # (auto) 0.2 10 ^3/uL (0-0.2); Basophils % (auto) 1.3 % (0.0-2.0); Eosinophils # (auto) 0.1 10 ^3/uL (0-0.8); Eosinophils % (auto) 0.9 % (0.0-7.0); Hemoglobin 8.7 g/dL (12.2-16.2); Lymphocytes % (auto) 17.2 % (10.0-50.0); Mean Corpuscular Hemoglobin 31.3 pg (28.0-32.0); Mean Corpuscular Hgb Conc. 33.6 g/dL (32.0-36.0); Mean Corpuscular Volume 93.1 fL (80.0-100.0); Monocytes # (auto) 0.6 10 ^3/uL (0-1.3); Monocytes % (auto) 5.2 % (0.0-12.0); Neutrophils # (auto) 8.7 10 ^3/uL (1.6-8.6); Neutrophils % (auto) 75.4 % (37.0-80.0); Nucleated Red Blood Cells % 0.4 %; Platelet Count (auto) 508 10^3/uL (140-450); Red Blood Cells 2.79 10^6/uL (4.0-5.20); Red Cell Distribution Width 14.4 % (11.8-14.3); White Blood Cell 11.5 10^3/uL (4.4-10.8)
[2019-10-31 05:22] LABS: BUN/Creatinine Ratio 18.6; Bilirubin, Total 0.4 mg/dL (0.2-1.0); Calcium 7.3 mg/dL (8.5-10.1)
[2019-10-31] MEDS: FUROSEMIDE 40 MG/4 ML VIAL IV SCH ×2 (05:56→18:15)
[2019-10-31] MEDS: InsuLIN REG 1unit/0.01ml Soln (100units/ml) SC SCH ×3 (05:56→18:15)
[2019-10-31] MEDS: ACCU-CHEK COMFORT CURVE STRIP VI SCH ×3 (05:56→18:15)
[2019-10-31] MEDS: SODIUM CHLORIDE 0.9% 1,000 ML IV SCH (10:12)
[2019-10-31] MEDS: SODIUM CHLOR 0.9% PF (SALINE LOCK) 10ML VIAL/SYR IV SCH ×2 (10:13→22:27)
[2019-10-31] MEDS: FLUCONAZOLE 200MG/100ML 100 ML IV SCH (10:14)
[2019-10-31] MEDS: FREE WATER GT SCH ×4 (10:15→22:27)
[2019-10-31] MEDS: NICOTINE 21MG/24 HR TOPICAL PATCH TD SCH (10:16)
[2019-10-31] MEDS: NYSTATIN TOPICAL POWDER 15GM TOP SCH ×2 (10:32→22:29)
[2019-10-31] MEDS: MIDAZOLAM DRIP 50 mg/50mL 50 ML IV SCH (11:01)
[2019-10-31] MEDS: LINEZOLID 600MG/300ML 300 ML IV SCH ×2 (11:17→22:28)
[2019-10-31] MEDS: NOREPINEPHRINE 8 MG/250ML KIT 250 ML IV SCH ×2 (12:53→22:15)
[2019-10-31] MEDS: INSULIN LANTUS (GLARGINE) 1 /0.01ml (100units/ml) SC SCH (22:29)
[2019-11-01] VITALS (101 sets, daily range): BP systolic 82–150; BP diastolic 31–96
[2019-11-01] MEDS: FREE WATER GT SCH ×6 (02:00→22:00)
[2019-11-01] MEDS: MEROPENEM 1GM IVPB 100 ML IV SCH ×2 (02:00→15:23)
[2019-11-01] MEDS: SODIUM CHLORIDE 0.9% 1,000 ML IV SCH ×2 (03:20→20:45)
[2019-11-01] MEDS: fentaNYL Drip 2500mCg/250mlNS 250 ML IV SCH (04:24)
[2019-11-01 04:31] LABS: Basophils # (auto) 0.1 10 ^3/uL (0-0.2); Neutrophils # (auto) 8.9 10 ^3/uL (1.6-8.6)
[2019-11-01 04:34] LABS: Basophils % (auto) 0.8 % (0.0-2.0); Eosinophils # (auto) 0.1 10 ^3/uL (0-0.8); Eosinophils % (auto) 0.9 % (0.0-7.0); Hematocrit 25.7 % (36.0-46.0); Hemoglobin 8.6 g/dL (12.2-16.2); Lymphocytes # (auto) 2.1 10 ^3/uL (0.4-5.4); Lymphocytes % (auto) 17.8 % (10.0-50.0); Mean Corpuscular Hemoglobin 30.8 pg (28.0-32.0); Mean Corpuscular Hgb Conc. 33.5 g/dL (32.0-36.0); Mean Corpuscular Volume 91.9 fL (80.0-100.0); Monocytes # (auto) 0.6 10 ^3/uL (0-1.3); Monocytes % (auto) 5.2 % (0.0-12.0); Neutrophils % (auto) 75.3 % (37.0-80.0); Nucleated Red Blood Cells % 0.3 %; Platelet Count (auto) 538 10^3/uL (140-450); Red Cell Distribution Width 14.4 % (11.8-14.3); White Blood Cell 11.8 10^3/uL (4.4-10.8)
[2019-11-01 04:50] LABS: Calcium 7.4 mg/dL (8.5-10.1); Potassium 3.9 mmol/L (3.5-5.1)
[2019-11-01 04:52] LABS: BUN/Creatinine Ratio 17.8
[2019-11-01 04:54] LABS: Bilirubin, Total 0.3 mg/dL (0.2-1.0); Total Protein 6.3 g/dL (6.4-8.2)
[2019-11-01] MEDS: ACCU-CHEK COMFORT CURVE STRIP VI SCH ×5 (06:11→23:49)
[2019-11-01] MEDS: FUROSEMIDE 40 MG/4 ML VIAL IV SCH ×3 (06:12→18:24)
[2019-11-01] MEDS: InsuLIN REG 1unit/0.01ml Soln (100units/ml) SC SCH ×5 (06:14→23:49)
[2019-11-01] MEDS: PROPOFOL 100 ML IV SCH (06:23)
[2019-11-01] MEDS: FLUCONAZOLE 200MG/100ML 100 ML IV SCH (10:38)
[2019-11-01] MEDS: NICOTINE 21MG/24 HR TOPICAL PATCH TD SCH (10:38)
[2019-11-01] MEDS: NYSTATIN TOPICAL POWDER 15GM TOP SCH ×2 (10:39→22:15)
[2019-11-01] MEDS: LINEZOLID 600MG/300ML 300 ML IV SCH ×2 (10:40→22:00)
[2019-11-01] MEDS: SODIUM CHLOR 0.9% PF (SALINE LOCK) 10ML VIAL/SYR IV SCH ×2 (10:41→22:15)
[2019-11-01] MEDS: MIDAZOLAM DRIP 50 mg/50mL 50 ML IV SCH (11:01)
[2019-11-01] MEDS: LORazepam 2MG/ML-1ML VIAL IV PRN (17:48)
[2019-11-01 21:03] LABS: Magnesium 1.9 mg/dL (1.6-2.6); Phosphorus 3.6 mg/dL (2.5-4.90); Potassium 3.7 mmol/L (3.5-5.1)
[2019-11-01] MEDS: INSULIN LANTUS (GLARGINE) 1 /0.01ml (100units/ml) SC SCH (22:00)
[2019-11-01] MEDS: MORPHINE SULF INJ 2 MG/ML SYRINGE 1ML IV PRN (22:15)
[2019-11-02] VITALS (50 sets, daily range): BP systolic 115–145; BP diastolic 62–95
[2019-11-02] MEDS: FREE WATER GT SCH ×6 (02:00→22:00)
[2019-11-02] MEDS: MEROPENEM 1GM IVPB 100 ML IV SCH ×2 (02:00→14:51)
[2019-11-02 04:18] LABS: Basophils # (auto) 0.1 10 ^3/uL (0-0.2); Eosinophils # (auto) 0.1 10 ^3/uL (0-0.8); Hemoglobin 9.3 g/dL (12.2-16.2); Mean Corpuscular Hgb Conc. 33.1 g/dL (32.0-36.0); Monocytes # (auto) 0.7 10 ^3/uL (0-1.3); Neutrophils # (auto) 7.4 10 ^3/uL (1.6-8.6); Nucleated Red Blood Cells % 0.1 %
[2019-11-02 04:20] LABS: Basophils % (auto) 0.8 % (0.0-2.0); Eosinophils % (auto) 0.8 % (0.0-7.0); Hematocrit 28.1 % (36.0-46.0); Lymphocytes # (auto) 2.1 10 ^3/uL (0.4-5.4); Mean Corpuscular Hemoglobin 30.2 pg (28.0-32.0); Mean Corpuscular Volume 91.4 fL (80.0-100.0); Monocytes % (auto) 6.7 % (0.0-12.0); Neutrophils % (auto) 71.7 % (37.0-80.0); Platelet Count (auto) 525 10^3/uL (140-450); Red Blood Cells 3.07 10^6/uL (4.0-5.20); Red Cell Distribution Width 14.8 % (11.8-14.3); White Blood Cell 10.3 10^3/uL (4.4-10.8)
[2019-11-02 04:40] LABS: Potassium 3.6 mmol/L (3.5-5.1)
[2019-11-02 04:47] LABS: Albumin 1.2 g/dL (3.4-5.0); BUN/Creatinine Ratio 15.9; Bilirubin, Total 0.4 mg/dL (0.2-1.0); Calcium 7.9 mg/dL (8.5-10.1); Magnesium 1.8 mg/dL (1.6-2.6); Total Protein 6.7 g/dL (6.4-8.2)
[2019-11-02] MEDS ORDERED: MAGNESIUM SULFATE 1GM/100ML 100 ML IV ONE ×2 (05:56→06:00)
[2019-11-02] MEDS ORDERED: AMIODARONE HCL 150 MG in D5W 5% 100 ML IV ONE (06:00)
[2019-11-02] MEDS: InsuLIN REG 1unit/0.01ml Soln (100units/ml) SC SCH ×3 (06:00→18:00)
[2019-11-02] MEDS: FUROSEMIDE 40 MG/4 ML VIAL IV SCH ×2 (06:00→18:35)
[2019-11-02] MEDS ORDERED: AMIODARONE 450mg/250ml AE 250 ML IV SCH ×2 (06:07→06:35)
[2019-11-02] MEDS: ACCU-CHEK COMFORT CURVE STRIP VI SCH ×3 (06:27→18:35)
[2019-11-02] MEDS ORDERED: POTASSIUM CHLORIDE 20 MEQ, LIDOCAINE 1% (LOCAL ANESTH.) 2 ML in SODIUM CHL 0.9% 100 ML IV ONE (09:45)
[2019-11-02] MEDS: FLUCONAZOLE 200MG/100ML 100 ML IV SCH (09:57)
[2019-11-02] MEDS: SODIUM CHLOR 0.9% PF (SALINE LOCK) 10ML VIAL/SYR IV SCH ×2 (10:14→22:00)
[2019-11-02] MEDS: NYSTATIN TOPICAL POWDER 15GM TOP SCH ×2 (10:14→22:33)
[2019-11-02] MEDS: IPRATROPIUM BROM 0.5 MG/2.5ML INH SOL NEB PRN (10:33)
[2019-11-02] MEDS: ALBUTEROL SULF 2.5 MG/0.5ML(0.5%) NEB SOLN NEB PRN (10:33)
[2019-11-02] MEDS: LINEZOLID 600MG/300ML 300 ML IV SCH ×2 (11:02→22:33)
[2019-11-02] MEDS: NICOTINE 21MG/24 HR TOPICAL PATCH TD SCH (11:02)
[2019-11-02] MEDS: NOREPINEPHRINE 8 MG/250ML KIT 250 ML IV SCH (12:53)
[2019-11-02] MEDS: AMIODARONE 450mg/250ml AE 250 ML IV SCH (13:46)
[2019-11-02] MEDS: SODIUM CHLORIDE 0.9% 1,000 ML IV SCH (14:51)
[2019-11-02] MEDS ORDERED: TPN PER PHARMACY 0 ML IV SCH (20:15)
[2019-11-02] MEDS ORDERED: AMINO ACID INFUSION IN D5W 1,000 ML IV NR (20:30)
[2019-11-02] MEDS: INSULIN LANTUS (GLARGINE) 1 /0.01ml (100units/ml) SC SCH (22:00)
[2019-11-03] VITALS (65 sets, daily range): BP systolic 115–154; BP diastolic 60–85
[2019-11-03] MEDS: MEROPENEM 1GM IVPB 100 ML IV SCH (02:00)
[2019-11-03] MEDS: FREE WATER GT SCH ×6 (02:00→20:10)
[2019-11-03] MEDS: AMIODARONE 450mg/250ml AE 250 ML IV SCH ×2 (03:07→07:00)
[2019-11-03 05:04] LABS: Basophils # (auto) 0.1 10 ^3/uL (0-0.2); Basophils % (auto) 0.8 % (0.0-2.0); Eosinophils # (auto) 0.1 10 ^3/uL (0-0.8); Eosinophils % (auto) 0.9 % (0.0-7.0); Hematocrit 28.6 % (36.0-46.0); Hemoglobin 9.4 g/dL (12.2-16.2); Lymphocytes # (auto) 1.9 10 ^3/uL (0.4-5.4); Lymphocytes % (auto) 21.6 % (10.0-50.0); Mean Corpuscular Hemoglobin 30.1 pg (28.0-32.0); Mean Corpuscular Hgb Conc. 32.9 g/dL (32.0-36.0); Mean Corpuscular Volume 91.5 fL (80.0-100.0); Monocytes # (auto) 0.5 10 ^3/uL (0-1.3); Monocytes % (auto) 6.1 % (0.0-12.0); Neutrophils # (auto) 6.1 10 ^3/uL (1.6-8.6); Neutrophils % (auto) 70.6 % (37.0-80.0); Nucleated Red Blood Cells % 0.1 %; Platelet Count (auto) 483 10^3/uL (140-450); Red Blood Cells 3.13 10^6/uL (4.0-5.20); Red Cell Distribution Width 14.2 % (11.8-14.3); White Blood Cell 8.7 10^3/uL (4.4-10.8)
[2019-11-03 05:24] LABS: Potassium 3.1 mmol/L (3.5-5.1)
[2019-11-03 05:38] LABS: Albumin 1.2 g/dL (3.4-5.0); BUN/Creatinine Ratio 16.1; Bilirubin, Total 0.3 mg/dL (0.2-1.0); Calcium 7.5 mg/dL (8.5-10.1); Magnesium 1.8 mg/dL (1.6-2.6); Phosphorus 2.7 mg/dL (2.5-4.90); Pre Albumin 8.8 mg/dL (20.0-40.0); Total Protein 6.4 g/dL (6.4-8.2)
[2019-11-03] MEDS: FUROSEMIDE 40 MG/4 ML VIAL IV SCH ×2 (05:55→17:32)
[2019-11-03] MEDS: InsuLIN REG 1unit/0.01ml Soln (100units/ml) SC SCH ×5 (05:56→23:39)
[2019-11-03] MEDS: ACCU-CHEK COMFORT CURVE STRIP VI SCH ×5 (05:56→23:34)
[2019-11-03] MEDS ORDERED: POTASSIUM CHLORIDE 40 MEQ, LIDOCAINE 1% (LOCAL ANESTH.) 4 ML in SODIUM CHL 0.9% 100 ML IV ONE (06:00)
[2019-11-03] MEDS: SODIUM CHLORIDE 0.9% 1,000 ML IV SCH ×2 (07:00→12:45)
[2019-11-03] MEDS: FLUCONAZOLE 200MG/100ML 100 ML IV SCH (09:57)
[2019-11-03] MEDS: NICOTINE 21MG/24 HR TOPICAL PATCH TD SCH (09:57)
[2019-11-03] MEDS: NYSTATIN TOPICAL POWDER 15GM TOP SCH ×2 (09:57→20:11)
[2019-11-03] MEDS: SODIUM CHLOR 0.9% PF (SALINE LOCK) 10ML VIAL/SYR IV SCH ×2 (09:57→20:11)
[2019-11-03] MEDS: LINEZOLID 600MG/300ML 300 ML IV SCH (11:40)
[2019-11-03 12:52] LABS: INR 1.08 (0.9-1.15)
[2019-11-03] MEDS: NOREPINEPHRINE 8 MG/250ML KIT 250 ML IV SCH (12:53)
[2019-11-03] MEDS: CLINDAMYCIN 600MG IV 50 ML IV SCH ×2 (13:42→20:11)
[2019-11-03] MEDS: MORPHINE SULF INJ 2 MG/ML SYRINGE 1ML IV PRN ×2 (17:49→23:34)
[2019-11-03] MEDS ORDERED: TPN PER PHARMACY IV NR ×9 (20:00)
[2019-11-03] MEDS: INSULIN LANTUS (GLARGINE) 1 /0.01ml (100units/ml) SC SCH (20:11)
[2019-11-04] MEDS: FREE WATER GT SCH ×3 (01:44→10:00)
[2019-11-04 04:00] VITALS: BP 135/89
[2019-11-04 04:00] LABS: Potassium 3.4 mmol/L (3.5-5.1)
[2019-11-04 04:07] LABS: Albumin 1.3 g/dL (3.4-5.0); BUN/Creatinine Ratio 14.8; Bilirubin, Total 0.2 mg/dL (0.2-1.0); Calcium 7.3 mg/dL (8.5-10.1); Magnesium 1.8 mg/dL (1.6-2.6); Phosphorus 2.3 mg/dL (2.5-4.90); Total Protein 6.8 g/dL (6.4-8.2)
[2019-11-04] MEDS: CLINDAMYCIN 600MG IV 50 ML IV SCH ×3 (05:21→21:08)
[2019-11-04] MEDS: FUROSEMIDE 40 MG/4 ML VIAL IV SCH (05:22)
[2019-11-04] MEDS: ACCU-CHEK COMFORT CURVE STRIP VI SCH ×3 (05:22→17:47)
[2019-11-04] MEDS: InsuLIN REG 1unit/0.01ml Soln (100units/ml) SC SCH ×3 (05:32→17:47)
[2019-11-04 08:00] VITALS: BP 130/75
[2019-11-04] MEDS: MORPHINE SULF INJ 2 MG/ML SYRINGE 1ML IV PRN ×3 (08:27→21:12)
[2019-11-04] MEDS ORDERED: LIDOCAINE 2%HCL (LOCAL ANESTH.) INJ 20ML MDV ONE (09:34)
[2019-11-04] MEDS: FLUCONAZOLE 200MG/100ML 100 ML IV SCH (10:11)
[2019-11-04] MEDS: NICOTINE 21MG/24 HR TOPICAL PATCH TD SCH (10:12)
[2019-11-04] MEDS: SODIUM CHLOR 0.9% PF (SALINE LOCK) 10ML VIAL/SYR IV SCH ×2 (10:12→21:08)
[2019-11-04] MEDS: NYSTATIN TOPICAL POWDER 15GM TOP SCH ×2 (10:12→21:11)
[2019-11-04 12:00] VITALS: BP 135/89
[2019-11-04] MEDS ORDERED: POTASSIUM PHOSPHATE 22 MEQ in SODIUM CHL 0.9% 100 ML IV ONE (12:00)
[2019-11-04] MEDS: levoFLOXacin 750MG 150 ML IV SCH (12:02)
[2019-11-04] MEDS ORDERED: POTASSIUM CHLORIDE 20 MEQ, LIDOCAINE 1% (LOCAL ANESTH.) 2 ML in SODIUM CHL 0.9% 100 ML IV ONE (13:00)
[2019-11-04 16:00] VITALS: BP 131/80
[2019-11-04] MEDS ORDERED: TPN PER PHARMACY IV NR ×11 (20:00)
[2019-11-04] MEDS: INSULIN LANTUS (GLARGINE) 1 /0.01ml (100units/ml) SC SCH (21:08)
[2019-11-04] MEDS ORDERED: AMIODARONE 450mg/250ml AE 250 ML IV SCH (22:48)
[2019-11-05] VITALS (8 sets, daily range): BP systolic 119–135; BP diastolic 59–83
[2019-11-05] MEDS: ACCU-CHEK COMFORT CURVE STRIP VI SCH ×4 (00:05→18:36)
[2019-11-05] MEDS: HYDROcodone-ACET 10/325MG TAB PO PRN ×5 (00:13→21:25)
[2019-11-05] MEDS: SODIUM CHLORIDE 0.9% 1,000 ML IV SCH (04:16)
[2019-11-05 04:50] LABS: Basophils # (auto) 0.1 10 ^3/uL (0-0.2); Basophils % (auto) 0.7 % (0.0-2.0); Eosinophils # (auto) 0.1 10 ^3/uL (0-0.8); Eosinophils % (auto) 0.7 % (0.0-7.0); Hematocrit 30.2 % (36.0-46.0); Hemoglobin 9.9 g/dL (12.2-16.2); Lymphocytes % (auto) 22.5 % (10.0-50.0); Mean Corpuscular Hemoglobin 29.8 pg (28.0-32.0); Mean Corpuscular Hgb Conc. 32.9 g/dL (32.0-36.0); Mean Corpuscular Volume 90.8 fL (80.0-100.0); Monocytes # (auto) 0.6 10 ^3/uL (0-1.3); Monocytes % (auto) 6.9 % (0.0-12.0); Neutrophils # (auto) 6.1 10 ^3/uL (1.6-8.6); Neutrophils % (auto) 69.2 % (37.0-80.0); Nucleated Red Blood Cells % 0.1 %; Platelet Count (auto) 400 10^3/uL (140-450); Red Blood Cells 3.32 10^6/uL (4.0-5.20); Red Cell Distribution Width 14.4 % (11.8-14.3); White Blood Cell 8.9 10^3/uL (4.4-10.8)
[2019-11-05 05:08] LABS: Albumin 1.4 g/dL (3.4-5.0); BUN/Creatinine Ratio 13.2; Calcium 7.4 mg/dL (8.5-10.1); Potassium 3.6 mmol/L (3.5-5.1)
[2019-11-05 05:11] LABS: Bilirubin, Total 0.3 mg/dL (0.2-1.0); Phosphorus 2.7 mg/dL (2.5-4.90); Total Protein 6.8 g/dL (6.4-8.2)
[2019-11-05] MEDS: InsuLIN REG 1unit/0.01ml Soln (100units/ml) SC SCH ×4 (06:00→18:00)
[2019-11-05] MEDS: CLINDAMYCIN 600MG IV 50 ML IV SCH ×3 (06:01→21:25)
[2019-11-05] MEDS: FLUCONAZOLE 200MG/100ML 100 ML IV SCH (11:29)
[2019-11-05] MEDS: levoFLOXacin 750MG 150 ML IV SCH (11:29)
[2019-11-05] MEDS: NICOTINE 21MG/24 HR TOPICAL PATCH TD SCH (11:31)
[2019-11-05] MEDS: NYSTATIN TOPICAL POWDER 15GM TOP SCH ×2 (11:31→21:27)
[2019-11-05] MEDS: SODIUM CHLOR 0.9% PF (SALINE LOCK) 10ML VIAL/SYR IV SCH ×2 (11:34→21:26)
[2019-11-05] MEDS: INSULIN LANTUS (GLARGINE) 1 /0.01ml (100units/ml) SC SCH (21:26)
[2019-11-06] MEDS: InsuLIN REG 1unit/0.01ml Soln (100units/ml) SC SCH ×4 (02:22→17:42)
[2019-11-06] MEDS: ACCU-CHEK COMFORT CURVE STRIP VI SCH ×4 (02:22→17:42)
[2019-11-06] MEDS: HYDROcodone-ACET 10/325MG TAB PO PRN ×3 (02:23→20:38)
[2019-11-06] MEDS: SODIUM CHLORIDE 0.9% 1,000 ML IV SCH (02:23)
[2019-11-06 05:00] VITALS: BP 140/73
[2019-11-06] MEDS: CLINDAMYCIN 600MG IV 50 ML IV SCH ×3 (06:22→23:04)
[2019-11-06 09:00] VITALS: BP 125/87
[2019-11-06] MEDS: LORazepam 0.5 MG TAB PO PRN ×2 (09:08→15:11)
[2019-11-06] MEDS: FLUCONAZOLE 200MG/100ML 100 ML IV SCH (09:09)
[2019-11-06] MEDS: NICOTINE 21MG/24 HR TOPICAL PATCH TD SCH (09:09)
[2019-11-06] MEDS: SODIUM CHLOR 0.9% PF (SALINE LOCK) 10ML VIAL/SYR IV SCH ×2 (09:10→23:04)
[2019-11-06 09:59] LABS: BUN/Creatinine Ratio 8.4; Calcium 7.9 mg/dL (8.5-10.1); Potassium 3.7 mmol/L (3.5-5.1)
[2019-11-06] MEDS: levoFLOXacin 750MG 150 ML IV SCH (10:36)
[2019-11-06] MEDS: NYSTATIN TOPICAL POWDER 15GM TOP SCH ×2 (10:36→23:04)
[2019-11-06 13:00] VITALS: BP 123/89
[2019-11-06] MEDS: D5W/SOD CHL 0.45%/KCL 20MEQ 1,000 ML IV SCH ×2 (15:14→23:05)
[2019-11-06] MEDS ORDERED: TPN PER PHARMACY 0 ML IV SCH (15:15)
[2019-11-06] MEDS ORDERED: IOHEXOL 300 MG/ML 100ML BOTTLE IJ ONE (17:04)
[2019-11-06] MEDS ORDERED: AMINO ACID INFUSION IN D5W 2,000 ML IV NR (20:00)
[2019-11-06] MEDS: INSULIN LANTUS (GLARGINE) 1 /0.01ml (100units/ml) SC SCH (22:00)
[2019-11-07] MEDS: ACCU-CHEK COMFORT CURVE STRIP VI SCH ×5 (00:13→23:49)
[2019-11-07] MEDS: HYDROcodone-ACET 10/325MG TAB PO PRN ×6 (01:39→23:54)
[2019-11-07 05:00] VITALS: BP 112/69
[2019-11-07] MEDS: InsuLIN REG 1unit/0.01ml Soln (100units/ml) SC SCH ×5 (06:00→23:52)
[2019-11-07 06:09] LABS: Basophils # (auto) 0.1 10 ^3/uL (0-0.2); Basophils % (auto) 0.8 % (0.0-2.0); Eosinophils # (auto) 0.1 10 ^3/uL (0-0.8); Eosinophils % (auto) 0.9 % (0.0-7.0); Hematocrit 30.6 % (36.0-46.0); Hemoglobin 9.9 g/dL (12.2-16.2); Lymphocytes # (auto) 2.1 10 ^3/uL (0.4-5.4); Lymphocytes % (auto) 18.2 % (10.0-50.0); Mean Corpuscular Hemoglobin 29.6 pg (28.0-32.0); Mean Corpuscular Hgb Conc. 32.3 g/dL (32.0-36.0); Mean Corpuscular Volume 91.5 fL (80.0-100.0); Monocytes # (auto) 0.7 10 ^3/uL (0-1.3); Neutrophils # (auto) 8.7 10 ^3/uL (1.6-8.6); Neutrophils % (auto) 74.1 % (37.0-80.0); Nucleated Red Blood Cells % 0.1 %; Platelet Count (auto) 399 10^3/uL (140-450); Red Blood Cells 3.34 10^6/uL (4.0-5.20); Red Cell Distribution Width 14.1 % (11.8-14.3); White Blood Cell 11.7 10^3/uL (4.4-10.8)
[2019-11-07] MEDS: CLINDAMYCIN 600MG IV 50 ML IV SCH (06:13)
[2019-11-07 06:37] LABS: Potassium 3.5 mmol/L (3.5-5.1)
[2019-11-07] MEDS: D5W/SOD CHL 0.45%/KCL 20MEQ 1,000 ML IV SCH ×2 (06:40→15:28)
[2019-11-07 06:48] LABS: Albumin 1.5 g/dL (3.4-5.0); BUN/Creatinine Ratio 6.3; Bilirubin, Total 0.2 mg/dL (0.2-1.0); Calcium 7.7 mg/dL (8.5-10.1); Phosphorus 2.8 mg/dL (2.5-4.90); Pre Albumin 11.2 mg/dL (20.0-40.0); Total Protein 6.5 g/dL (6.4-8.2)
[2019-11-07] MEDS: LORazepam 0.5 MG TAB PO PRN ×2 (08:23→18:03)
[2019-11-07] MEDS ORDERED: VANCOMYCIN PER PHARMACY 0 MG IV SCH (10:00)
[2019-11-07] MEDS: NICOTINE 21MG/24 HR TOPICAL PATCH TD SCH (11:00)
[2019-11-07] MEDS: levoFLOXacin 750MG 150 ML IV SCH (11:00)
[2019-11-07] MEDS: SODIUM CHLOR 0.9% PF (SALINE LOCK) 10ML VIAL/SYR IV SCH ×2 (11:01→22:26)
[2019-11-07] MEDS: FLUCONAZOLE 200MG/100ML 100 ML IV SCH (11:01)
[2019-11-07] MEDS: NYSTATIN TOPICAL POWDER 15GM TOP SCH ×2 (11:01→22:27)
[2019-11-07 12:41] VITALS: BP 145/71
[2019-11-07] MEDS: VANCOMYCIN 750mg/250ml 250 ML IV SCH (15:00)
[2019-11-07] MEDS ORDERED: TPN PER PHARMACY IV NR ×9 (20:00)
[2019-11-07 22:00] VITALS: BP 122/70
[2019-11-07] MEDS: INSULIN LANTUS (GLARGINE) 1 /0.01ml (100units/ml) SC SCH (22:00)
[2019-11-07] MEDS: MORPHINE SULF INJ 2 MG/ML SYRINGE 1ML IV PRN (22:26)
[2019-11-08] MEDS: LORazepam 0.5 MG TAB PO PRN ×2 (01:08→21:27)
[2019-11-08] MEDS: D5W/SOD CHL 0.45%/KCL 20MEQ 1,000 ML IV SCH ×3 (03:01→20:00)
[2019-11-08] MEDS: HYDROcodone-ACET 10/325MG TAB PO PRN ×4 (04:48→20:07)
[2019-11-08 05:00] VITALS: BP 149/62
[2019-11-08] MEDS: ACCU-CHEK COMFORT CURVE STRIP VI SCH ×4 (06:00→23:58)
[2019-11-08] MEDS: InsuLIN REG 1unit/0.01ml Soln (100units/ml) SC SCH ×4 (06:00→23:59)
[2019-11-08 06:21] LABS: Hematocrit 32.1 % (36.0-46.0); Hemoglobin 10.5 g/dL (12.2-16.2); Mean Corpuscular Hemoglobin 30.1 pg (28.0-32.0); Mean Corpuscular Hgb Conc. 32.7 g/dL (32.0-36.0); Platelet Count (auto) 427 10^3/uL (140-450); Red Blood Cells 3.49 10^6/uL (4.0-5.20); Red Cell Distribution Width 14.4 % (11.8-14.3); White Blood Cell 10.6 10^3/uL (4.4-10.8)
[2019-11-08 06:43] LABS: Potassium 3.3 mmol/L (3.5-5.1)
[2019-11-08 06:51] LABS: Band Neutrophils % (manual) 0; Basophils % (manual) 0 (0.0-2.0); Blast Cells 0; Eosinophils % (manual) 0 (0-7); Metamyelocytes % 0; Myelocytes % 0; Promyelocytes % 0; Reactive Lymphocytes 0
[2019-11-08 06:59] LABS: Albumin 1.6 g/dL (3.4-5.0); BUN/Creatinine Ratio 6.9; Bilirubin, Total 0.2 mg/dL (0.2-1.0); Calcium 7.7 mg/dL (8.5-10.1); Magnesium 1.8 mg/dL (1.6-2.6); Phosphorus 2.2 mg/dL (2.5-4.90); Total Protein 6.7 g/dL (6.4-8.2)
[2019-11-08 07:21] LABS: Lymphocytes % (manual) 18 (10.0-50.0); Monocytes % (manual) 7 (0-12)
[2019-11-08] MEDS: MORPHINE SULF INJ 2 MG/ML SYRINGE 1ML IV PRN ×2 (08:47→17:17)
[2019-11-08] MEDS: ONDANSETRON HCL 4 MG/2 ML VIAL IV PRN ×2 (08:47→17:17)
[2019-11-08 09:06] VITALS: BP 148/87
[2019-11-08] MEDS: FLUCONAZOLE 200MG/100ML 100 ML IV SCH (09:13)
[2019-11-08] MEDS: levoFLOXacin 750MG 150 ML IV SCH (09:13)
[2019-11-08] MEDS: SODIUM CHLOR 0.9% PF (SALINE LOCK) 10ML VIAL/SYR IV SCH ×2 (09:13→22:00)
[2019-11-08] MEDS: NYSTATIN TOPICAL POWDER 15GM TOP SCH ×2 (09:15→22:00)
[2019-11-08] MEDS: NICOTINE 21MG/24 HR TOPICAL PATCH TD SCH (09:15)
[2019-11-08] MEDS ORDERED: POTASSIUM CHL 20 Meq TABLET PO ONE (10:00)
[2019-11-08] MEDS ORDERED: POTASSIUM PHOSP 22MEQ(15MMOLE) in NS 100 ML IV ONE (10:00)
[2019-11-08 13:48] VITALS: BP 151/89
[2019-11-08] MEDS: VANCOMYCIN 750mg/250ml 250 ML IV SCH (14:00)
[2019-11-08 16:14] VITALS: BP 142/92
[2019-11-08] MEDS ORDERED: TPN PER PHARMACY IV NR ×9 (20:00)
[2019-11-08 22:00] VITALS: BP 147/70
[2019-11-08] MEDS: INSULIN LANTUS (GLARGINE) 1 /0.01ml (100units/ml) SC SCH (22:00)
[2019-11-09] MEDS: HYDROcodone-ACET 10/325MG TAB PO PRN ×4 (00:05→19:55)
[2019-11-09] MEDS: MORPHINE SULF INJ 2 MG/ML SYRINGE 1ML IV PRN ×3 (02:03→17:42)
[2019-11-09 05:00] VITALS: BP 131/69
[2019-11-09] MEDS: InsuLIN REG 1unit/0.01ml Soln (100units/ml) SC SCH ×3 (06:00→17:52)
[2019-11-09] MEDS: ACCU-CHEK COMFORT CURVE STRIP VI SCH ×3 (06:00→17:52)
[2019-11-09] MEDS: LORazepam 0.5 MG TAB PO PRN ×3 (06:17→22:16)
[2019-11-09 07:23] LABS: Potassium 4.1 mmol/L (3.5-5.1)
[2019-11-09 07:32] LABS: Albumin 1.7 g/dL (3.4-5.0); BUN/Creatinine Ratio 4.7; Bilirubin, Total 0.3 mg/dL (0.2-1.0); Calcium 7.8 mg/dL (8.5-10.1); Magnesium 1.9 mg/dL (1.6-2.6); Phosphorus 2.5 mg/dL (2.5-4.90); Total Protein 7.1 g/dL (6.4-8.2)
[2019-11-09 09:00] VITALS: BP 148/89
[2019-11-09] MEDS: levoFLOXacin 750MG 150 ML IV SCH (10:23)
[2019-11-09] MEDS: FLUCONAZOLE 200MG/100ML 100 ML IV SCH (10:23)
[2019-11-09] MEDS: SODIUM CHLOR 0.9% PF (SALINE LOCK) 10ML VIAL/SYR IV SCH ×2 (10:24→22:18)
[2019-11-09] MEDS: NYSTATIN TOPICAL POWDER 15GM TOP SCH ×2 (10:24→23:30)
[2019-11-09] MEDS: D5W/SOD CHL 0.45%/KCL 20MEQ 1,000 ML IV SCH (10:24)
[2019-11-09] MEDS: NICOTINE 21MG/24 HR TOPICAL PATCH TD SCH (10:24)
[2019-11-09] MEDS: ONDANSETRON HCL 4 MG/2 ML VIAL IV PRN ×2 (10:25→17:42)
[2019-11-09] MEDS: VANCOMYCIN 750mg/250ml 250 ML IV SCH (11:34)
[2019-11-09 13:00] VITALS: BP 155/83
[2019-11-09 17:00] VITALS: BP 149/94
[2019-11-09] MEDS: INSULIN LANTUS (GLARGINE) 1 /0.01ml (100units/ml) SC SCH (22:00)
[2019-11-10] MEDS: D5W/SOD CHL 0.45%/KCL 20MEQ 1,000 ML IV SCH ×2 (01:05→10:17)
[2019-11-10] MEDS: ONDANSETRON HCL 4 MG/2 ML VIAL IV PRN ×2 (01:18→09:45)
[2019-11-10] MEDS: MORPHINE SULF INJ 2 MG/ML SYRINGE 1ML IV PRN ×2 (01:19→09:46)
[2019-11-10 05:00] VITALS: BP 144/89
[2019-11-10] MEDS: InsuLIN REG 1unit/0.01ml Soln (100units/ml) SC SCH ×3 (05:14→13:03)
[2019-11-10] MEDS: ACCU-CHEK COMFORT CURVE STRIP VI SCH ×3 (05:14→12:00)
[2019-11-10] MEDS: LORazepam 0.5 MG TAB PO PRN ×2 (05:22→11:45)
[2019-11-10 09:00] VITALS: BP 137/86
[2019-11-10] MEDS: levoFLOXacin 750MG 150 ML IV SCH (09:45)
[2019-11-10] MEDS: NICOTINE 21MG/24 HR TOPICAL PATCH TD SCH (09:45)
[2019-11-10] MEDS: SODIUM CHLOR 0.9% PF (SALINE LOCK) 10ML VIAL/SYR IV SCH (09:46)
[2019-11-10] MEDS: NYSTATIN TOPICAL POWDER 15GM TOP SCH (10:00)
[2019-11-10] MEDS: FLUCONAZOLE 200MG/100ML 100 ML IV SCH (11:46)
[2019-11-10 12:35] VITALS: BP 142/94
[2019-11-10] MEDS: HYDROcodone-ACET 10/325MG TAB PO PRN (13:02)
[2019-11-10] MEDS: VANCOMYCIN 750mg/250ml 250 ML IV SCH (13:12)
[2019-11-10] MEDS ORDERED: LIDOCAINE 1% (LOCAL ANESTH.) PF 5ml SDV ONE (14:21)
[2019-11-10 14:40] VITALS: BP_DIAS 89
== END 2019-11-10 16:05 | disposition home or self-care (01) | DRG 130 ==
LOC: ER 15:15 → EDBD 15:15 → TELE 15:16 → DOU IN ICU 10-20 13:52 → ICU WEST 10-23 14:44 → DOU IN ICU 11-03 16:30 → TELE-CENTR 11-05 22:55
PROVIDERS: ADMIT Nurse Practitioner Acute Care; ATTEND Internal Medicine
PROC: 5A09557 Assistance with Respiratory Ventilation, Greater than 96 Consecutive Hours, Continuous Positive Airway Pressure (ICD-10-PCS; 2019-10-18)
PROC: 0W9B3ZZ Drainage of Left Pleural Cavity, Percutaneous Approach (ICD-10-PCS; 2019-10-19)
PROC: 5A1955Z Respiratory Ventilation, Greater than 96 Consecutive Hours (ICD-10-PCS; principal; 2019-10-23)
PROC: 0BH17EZ Insertion of Endotracheal Airway into Trachea, Via Natural or Artificial Opening (ICD-10-PCS; 2019-10-23)
PROC: 0W9930Z Drainage of Right Pleural Cavity with Drainage Device, Percutaneous Approach (ICD-10-PCS; 2019-10-23)
PROC: 02HV33Z Insertion of Infusion Device into Superior Vena Cava, Percutaneous Approach (ICD-10-PCS; 2019-10-23)
PROC: B548ZZA Ultrasonography of Superior Vena Cava, Guidance (ICD-10-PCS; 2019-10-23)
PROC: 0BJ08ZZ Inspection of Tracheobronchial Tree, Via Natural or Artificial Opening Endoscopic (ICD-10-PCS; 2019-10-27)
PROC: 0B9C8ZZ Drainage of Right Upper Lung Lobe, Via Natural or Artificial Opening Endoscopic (ICD-10-PCS; 2019-10-30)
DX: J96.21 Acute and chronic respiratory failure with hypoxia (principal); N17.0 Acute kidney failure with tubular necrosis; J86.9 Pyothorax without fistula; E11.00 Type 2 diabetes mellitus with hyperosmolarity without nonketotic hyperglycemic-hyperosmolar coma (NKHHC); G93.41 Metabolic encephalopathy; E43 Unspecified severe protein-calorie malnutrition; J18.9 Pneumonia, unspecified organism; E87.3 Alkalosis; J90 Pleural effusion, not elsewhere classified; J44.0 Chronic obstructive pulmonary disease with (acute) lower respiratory infection; N18.3 Chronic kidney disease, stage 3 (moderate); E86.0 Dehydration; E87.1 Hypo-osmolality and hyponatremia; R91.8 Other nonspecific abnormal finding of lung field; E11.22 Type 2 diabetes mellitus with diabetic chronic kidney disease; Z20.828 Contact with and (suspected) exposure to other viral communicable diseases; B37.49 Other urogenital candidiasis; D64.9 Anemia, unspecified; F17.210 Nicotine dependence, cigarettes, uncomplicated; I12.9 Hypertensive chronic kidney disease with stage 1 through stage 4 chronic kidney disease, or unspecified chronic kidney disease; Z79.4 Long term (current) use of insulin; Z80.0 Family history of malignant neoplasm of digestive organs; Z80.1 Family history of malignant neoplasm of trachea, bronchus and lung; Z80.3 Family history of malignant neoplasm of breast; Z80.41 Family history of malignant neoplasm of ovary; Z80.8 Family history of malignant neoplasm of other organs or systems; Z81.8 Family history of other mental and behavioral disorders; Z82.0 Family history of epilepsy and other diseases of the nervous system; Z82.49 Family history of ischemic heart disease and other diseases of the circulatory system; Z82.3 Family history of stroke; Z82.5 Family history of asthma and other chronic lower respiratory diseases; Z82.62 Family history of osteoporosis; Z83.3 Family history of diabetes mellitus; Z91.19 Patient's noncompliance with other medical treatment and regimen
CPT/HCPCS: 10022; 31622; 31645; 32555; 36415; 36569; 36600; 71045; 71250; 71260; 76942; 77012; 80048; 80053; 80061; 80202; 81001; 82040; 82728; 82805; 82962; 83036; 83605; 83615; 83735; 83880; 83930; 83986; 84100; 84132; 84300; 84443; 84478; 84484; 85007; 85025; 85027; 85379; 85610; 86141; 86850; 86900; 86901; 87040; 87070; 87081; 87086; 87088; 87186; 87205; 87804; 87880; 89051; 93005; 93970; 94002; 94003; 94640; 94644; 94660; 97110; 97163; 97530; 99291; A4223; A4565; C1729; G0378; J0171; J0696; J1450; J1815; J1956; J2001; J2185; J2250; J2405; J2543; J2704; J3490; J7131; P9047

== ENCOUNTER 2019-12-30 14:50 | Emergency (ER) | payer MEDICAID ==
[~2019-12-30] VITALS: Ht 152.4 cm; Wt 127.0 kg
[~2019-12-30 14:50] MED LIST changes: -ENAL20TA PO; +ENAL20TA8 PO
[2019-12-30 15:13] VITALS: BP 119/62
[2019-12-30 15:47] LABS: Basophils # (auto) 0 10 ^3/uL (0-0.2); Basophils % (auto) 0.3 % (0.0-2.0); Eosinophils # (auto) 0.2 10 ^3/uL (0-0.8); Hematocrit 36.6 % (36.0-46.0); Hemoglobin 11.5 g/dL (12.2-16.2); Lymphocytes # (auto) 2.4 10 ^3/uL (0.4-5.4); Lymphocytes % (auto) 27.2 % (10.0-50.0); Mean Corpuscular Hemoglobin 29.2 pg (28.0-32.0); Mean Corpuscular Hgb Conc. 31.5 g/dL (32.0-36.0); Mean Corpuscular Volume 92.6 fL (80.0-100.0); Monocytes # (auto) 0.5 10 ^3/uL (0-1.3); Monocytes % (auto) 5.8 % (0.0-12.0); Neutrophils # (auto) 5.7 10 ^3/uL (1.6-8.6); Neutrophils % (auto) 64.7 % (37.0-80.0); Platelet Count (auto) 388 10^3/uL (140-450); Red Blood Cells 3.95 10^6/uL (4.0-5.20); Red Cell Distribution Width 16.6 % (11.8-14.3); White Blood Cell 8.7 10^3/uL (4.4-10.8)
[2019-12-30 16:04] LABS: Albumin 2.9 g/dL (3.4-5.0); Anion Gap 6 (5-15); Blood Urea Nitrogen 9 mg/dL (7-18); Calcium 8.5 mg/dL (8.5-10.1); Carbon Dioxide 28 mmol/L (21-32); Chloride 107 mmol/L (98-107); Glucose 215 mg/dL (74-106); Sodium 141 mmol/L (136-145)
[2019-12-30 16:08] LABS: INR 0.96 (0.9-1.15); Partial Thromboplastin Time 24.6 sec (23.0-31.2)
[2019-12-30 16:10] LABS: Alanine Aminotransferase 16 U/L (13-56); Alkaline Phosphatase 94 U/L (45-117); Aspartate Aminotransferase 11 U/L (15-37); BUN/Creatinine Ratio 10.3; Bilirubin, Total 0.2 mg/dL (0.2-1.0); CRP High Sensitivity 0.69 mg/dL (< 0.3); GFR African American 85 mL/min; GFR Non-African American 70 mL/min; Lactate Dehydrogenase 156 U/L (84-246); Total Protein 7.4 g/dL (6.4-8.2)
== END 2019-12-30 16:34 | disposition left against medical advice (07) ==
LOC: ER 14:50
DX: R53.1 Weakness (principal); J44.9 Chronic obstructive pulmonary disease, unspecified; I10 Essential (primary) hypertension; F17.210 Nicotine dependence, cigarettes, uncomplicated
CPT/HCPCS: 36415; 71045; 80053; 82728; 83615; 83880; 84484; 85025; 85610; 85730; 86141